=== PATIENT | female | born 1945 | race Hispanic/Latino ===

== ENCOUNTER 2018-07-08 10:56 | Inpatient (IN) | payer OTHER ==
[2018-07-08 12:55] LABS: Absolute Lymphocytes (CBC) 1.1 K/uL (0.7-4.9); Absolute Monocytes 0.5 K/uL (0.1-1.3); Absolute Neutrophil 7.2 K/uL (1.8-8.0); Basophils % 0.5 % (0-1.3); Eosinophils % 0.8 % (0-4.4); Monocytes % 5.9 % (3.3-12.3); RBC Red Blood Cell Count 4.63 M/uL (3.86-4.86)
[2018-07-08 12:56] LABS: Albumin 3.9 g/dL (3.4-5.0); Bilirubin Total 0.5 mg/dL (0.2-1.0); Potassium 3.5 mmol/L (3.5-5.1); Protein, Total 8.7 g/dL (6.4-8.2)
[2018-07-08] MEDS ORDERED: NA CHLORIDE 0.9% 250 ML ONE (13:01)
[2018-07-08] MEDS: Levofloxacin500mg IV 500 MG/100 ML BAG IV SCH (13:04)
[2018-07-08 16:28] LABS: Urine Appearance CLEAR; Urine Bilirubin NEGATIVE (NEG); Urine Blood 2+ (NEG); Urine Color YELLOW; Urine Glucose NEGATIVE (NEG); Urine Protein TRACE (NEG); Urine Specific Gravity 1.015 (1.005-1.030)
[2018-07-08] MEDS: ALBUTEROL 2.5 MG/3 ML NEB SOL NEB SCH ×2 (16:30→19:38)
[2018-07-08 16:34] LABS: Urine Microscopic Reflex ORDER UMIC
[2018-07-08 18:44] LABS: Urine Amorphous Sediment 2+ /HPF (NONE SEEN); Urine Bacteria 20-50 /HPF (<20); Urine Culture Reflex Order REFLEXED; Urine RBC 20-50 /HPF (NONE SEEN)
[2018-07-08] MEDS: ZOLPIDEM TARTRATE 5 MG TABLET PO PRN (20:43)
[2018-07-09] MEDS: ALBUTEROL 2.5 MG/3 ML NEB SOL NEB SCH ×4 (07:50→20:29)
[2018-07-09] MEDS: PREGABALIN 50 MG CAP PO SCH ×2 (08:59→20:14)
[2018-07-09] MEDS: Levofloxacin500mg IV 500 MG/100 ML BAG IV SCH (08:59)
[2018-07-09] MEDS: GUAIFENESIN/CODEINE 5ML UCUP PO PRN (17:16)
--- NOTE | 2018-07-09 19:49 | HP ---
Date of Admission: 07/08/2018 Chief Complaint: Wheezing, coughing, and fever. History Of Present Illness: A 73-year-old female was brought to my office with fever, wheezing and c oughing. Outpatient chest x-ray showed left basal pneumonia. The patient is admitted for IV antibio tic therapy and breathing treatments. Past Medical History: The patient is known to have history of smoking. Other problems include histo ry of osteoarthritis. Past Surgical History: Positive for back surgery, shoulder surgery, knee replacement, hysterectomy, breast surgery. Family History: Positive for hypertension, heart disease, and arthritis. Allergies: PENICILLIN. Home Medicines: The patient currently is on Mobic and Lyrica. Review of Systems: The patient denied any chest pain, hemoptysis. Physical Examination: General: Revealed 73-year-old female with low-grade fever. HEENT: Congested throat. Neck: Supple. JVD negative. Chest: Bilateral wheezes and crackles. Heart: Regular. Abdomen: Soft. Extremities: No edema. Diffuse osteoarthritis noted. Assessment: 1.Left basal pneumonia. 2.Chronic obstructive pulmonary disease. 3.Osteoarthritis. Plan: IV Levaquin, Proventil inhaler, restart home medications. MELISSA/NIKI Voice ID: [id number]
[2018-07-09] MEDS: MELOXICAM 7.5 MG TAB PO SCH (20:14)
[2018-07-09] MEDS: ZOLPIDEM TARTRATE 5 MG TABLET PO PRN (20:15)
[2018-07-10] MEDS: GUAIFENESIN/CODEINE 5ML UCUP PO PRN ×2 (05:24→23:00)
--- NOTE | 2018-07-10 07:04 | RAD REPORT ---
EXAM DESCRIPTION: RAD - Chest Single View - 07/10/2018 6:37 am CLINICAL HISTORY: Pneumonia COMPARISON: July 08 TECHNIQUE: AP portable chest image was obtained 0620 hours . FINDINGS: Chronic interstitial lung disease is noted. Left base opacification has mostly cleared. Tr elizabeth amount of stranding in the right base also improved. No new or progressive lung parenchymal proce ss. No failure or volume overload. Heart and vasculature are normal. No measurable pleural effusion a nd no pneumothorax. No acute bony abnormality seen. No acute aortic findings suspected. IMPRESSION: Partial clearing of left lung base opacification since prior July 08 imaging.
[2018-07-10] MEDS: ALBUTEROL 2.5 MG/3 ML NEB SOL NEB SCH ×4 (08:09→21:14)
[2018-07-10] MEDS: Levofloxacin500mg IV 500 MG/100 ML BAG IV SCH (08:19)
[2018-07-10] MEDS: PREGABALIN 50 MG CAP PO SCH ×2 (08:19→20:52)
[2018-07-10] MEDS ORDERED: ENOXAPARIN 30 MG/0.3 ML SQ ONE (08:53)
[2018-07-10] MEDS: predniSONE 20 MG TAB PO SCH ×2 (10:03→20:52)
[2018-07-10] MEDS: MELOXICAM 7.5 MG TAB PO SCH (20:52)
[2018-07-10] MEDS: ZOLPIDEM TARTRATE 5 MG TABLET PO PRN (20:52)
--- NOTE | 2018-07-11 01:57 | PN ---
The patient still has considerable wheezing. Her chest x-ray shows improvement of the pneumonia. In view of her continued wheezing, the patient is started on oral steroids. She also was given Tessalo n Perles. She will be reexamined tomorrow to see whether she would improve further; at which point, a discharge plan will be done. MELISSA/NIKI Voice ID: [id number] Report ID: [id number]
[2018-07-11] MEDS: ALBUTEROL 2.5 MG/3 ML NEB SOL NEB SCH ×4 (07:45→20:05)
[2018-07-11] MEDS: BENZONATATE 100 MG CAP PO PRN ×2 (08:28→16:27)
[2018-07-11] MEDS: Levofloxacin500mg IV 500 MG/100 ML BAG IV SCH (08:28)
[2018-07-11] MEDS: predniSONE 20 MG TAB PO SCH ×2 (08:28→21:17)
[2018-07-11] MEDS: PREGABALIN 50 MG CAP PO SCH ×2 (08:28→21:17)
--- NOTE | 2018-07-11 12:38 | PN ---
The patient is doing slightly better today. She still has bilateral wheezes and crackles in the left base. She is afebrile. Very likely patient is responding to oral steroids, which will be continued for another 24 hours along with breathing treatments and very likely I will send her home tomorrow o n oral antibiotic, steroids, and inhalers. MELISSA/NIKI Voice ID: [id number] Report ID: [id number]
[2018-07-11] MEDS: GUAIFENESIN/CODEINE 5ML UCUP PO PRN (21:16)
[2018-07-11] MEDS: MELOXICAM 7.5 MG TAB PO SCH (21:17)
[2018-07-11] MEDS: ZOLPIDEM TARTRATE 5 MG TABLET PO PRN (21:17)
[2018-07-12] MEDS: ALBUTEROL 2.5 MG/3 ML NEB SOL NEB SCH (07:16)
[2018-07-12] MEDS: BENZONATATE 100 MG CAP PO PRN (08:50)
[2018-07-12] MEDS: Levofloxacin500mg IV 500 MG/100 ML BAG IV SCH (08:50)
[2018-07-12] MEDS: PREGABALIN 50 MG CAP PO SCH (08:51)
[2018-07-12] MEDS: predniSONE 20 MG TAB PO SCH (08:51)
[2018-07-12] MEDS: GUAIFENESIN/CODEINE 5ML UCUP PO PRN (10:39)
== END 2018-07-12 11:22 | disposition home or self-care (01) | DRG 194 ==
LOC: 2ND 11:32
PROVIDERS: ADMIT Internal Medicine; ATTEND Internal Medicine
DX: J18.9 Pneumonia, unspecified organism (principal); J44.0 Chronic obstructive pulmonary disease with (acute) lower respiratory infection; Z87.891 Personal history of nicotine dependence; Z88.0 Allergy status to penicillin; M19.90 Unspecified osteoarthritis, unspecified site
CPT/HCPCS: 36415; 71045; 71046; 80053; 81003; 81015; 85025; 87040; 87070; 87077; 87086; 87088; 87186; 87205; 94640; J1650; J7512

== ENCOUNTER 2018-09-30 19:27 | Emergency (ER) | payer OTHER ==
--- NOTE | 2018-09-30 20:35 | RAD REPORT ---
EXAM DESCRIPTION: RAD - Chest Single View - 09/30/2018 8:00 pm CLINICAL HISTORY: Productive cough, recent pneumonia COMPARISON: June 2018 TECHNIQUE: AP portable chest image was obtained 1958 hours . FINDINGS: No focal mass, consolidation or acute failure finding. Minimal peribronchial thickening is seen. Patient has a mild baseline interstitial pattern. This is stable overall. Minimal left base op acification seen on the prior study has cleared. Heart and vasculature are normal. No measurable pleu ral effusion and no pneumothorax. No acute bony abnormality seen. No acute aortic findings suspected. IMPRESSION: Chronic interstitial lung disease. Previously detailed left base infiltrate has resolved . Severity chronic disease could mask early interstitial edema or infiltrate.
[2018-09-30 23:32] LABS: Absolute Lymphocytes (CBC) 2.1 K/uL (0.7-4.9); Absolute Monocytes 0.6 K/uL (0.1-1.3); Absolute Neutrophil 6.4 K/uL (1.8-8.0); Basophils % 0.4 % (0-1.3); Eosinophils % 11.7 % (0-4.4); Hematocrit 37.7 % (36.0-45.0); MPV 8.5 fL (7.6-11.3); Monocytes % 5.5 % (3.3-12.3); RBC Red Blood Cell Count 4.15 M/uL (3.86-4.86)
[2018-09-30 23:45] LABS: Protime INR 0.97
[2018-09-30] MEDS ORDERED: IPRATROPIUM BROM 0.5MG/2.5ML ONE (23:50)
[2018-09-30] MEDS ORDERED: ALBUTEROL 2.5 MG/3 ML NEB SOL ONE (23:50)
[2018-09-30] MEDS ORDERED: Levofloxacin500mg IV 500 MG/100 ML BAG IV ONE (23:51)
[2018-09-30] MEDS ORDERED: Magnesium Sulfate 2gm IVPB 2 G/50 ML BAG IV ONE (23:51)
[2018-09-30] MEDS ORDERED: DEXAMETHASONE 4 MG/ML VIAL ONE (23:56)
[2018-09-30 23:59] LABS: ALT/SGPT 15 U/L (12-78); AST/SGOT 15 U/L (15-37); Albumin 3.6 g/dL (3.4-5.0); Alkaline Phosphatase 74 U/L (45-117); BUN Blood Urea Nitrogen 6 mg/dL (7-18); Bicarbonate 26 mmol/L (21-32); Bilirubin Direct 0.1 mg/dL (0-0.2); Bilirubin Total 0.3 mg/dL (0.2-1.0); Glucose Level 112 mg/dL (74-106); NT PRO-BNP 68 pg/mL (<125); Potassium 3.7 mmol/L (3.5-5.1); Sodium Level 145 mmol/L (136-145); Troponin (Emerg Dept Use Only) < 0.02 ng/mL (0.0-0.045)
--- NOTE | 2018-10-01 01:54 | EDPHYS ---
Physician Documentation [facility] Name: Emeli Benoit Age: 73 yrs Sex: Female : 1945 Arrival Date: 09/30/2018 Time: 19:30 Bed 20 Private MD: Parvez Flores R ED Physician Narayan Clement HPI: 09/30 23:48 This 73 yrs old Female presents to ER via Ambulatory with complaints of Cough. wa 23:48 The patient or guardian reports cough, described as moderate, with productive sputum, wa that is yellow. Onset: The symptoms/episode began/occurred 3 day(s) ago. Severity of symptoms: At their worst the symptoms were moderate, in the emergency department the symptoms are actually worse, mildly. Modifying factors: The symptoms are alleviated by nothing, the symptoms are aggravated by nothing. Associated signs and symptoms: Pertinent positives: mild SOB, Pertinent negatives: chest pain, fever, nausea, rhinorrhea, sore throat, vomiting. The patient has experienced similar episodes in the past, several times, dx'd with pna last June. states had been improving slowly. cough worse x 3 days. The patient has not recently seen a physician. Historical: - Allergies: 19:39 PENICILLINS; ea - Home Meds: 19:39 Lyrica Oral [Active]; meloxicam oral oral [Active]; ea - PMHx: 19:39 Arthritis; ea - PSHx: 19:39 back surgery; knee repair; right breast lumpectomy; ea - Immunization history:: Adult Immunizations up to date. - Social history:: Smoking status: Patient/guardian denies using tobacco, but has a distant history of tobacco abuse. - Ebola Screening: : No symptoms or risks identified at this time. - Family history:: not pertinent. - Hospitalizations: : No recent hospitalization is reported. ROS: 23:49 Constitutional: Negative for fever, chills, and weight loss, Eyes: Negative for injury, wa pain, redness, and discharge, ENT: Negative for injury, pain, and discharge, Neck: Negative for injury, pain, and swelling, Abdomen/GI: Negative for abdominal pain, nausea, vomiting, diarrhea, and constipation, Back: Negative for injury and pain, : Negative for injury, bleeding, discharge, and swelling, MS/Extremity: Negative for injury and deformity, Skin: Negative for injury, rash, and discoloration, Neuro: Negative for headache, weakness, numbness, tingling, and seizure, Psych: Negative for depression, anxiety, suicide ideation, homicidal ideation, and hallucinations. 23:49 Cardiovascular: Negative for chest pain, edema, orthopnea, palpitations, paroxysmal nocturnal dyspnea. 23:49 Respiratory: Positive for cough, shortness of breath, Negative for dyspnea on exertion. 23:49 All other systems are negative. Exam: 23:50 Constitutional: This is a well developed, well nourished patient who is awake, alert, wa and in no acute distress. Head/Face: Normocephalic, atraumatic. Eyes: Pupils equal round and reactive to light, extra-ocular motions intact. Lids and lashes normal. Conjunctiva and sclera are non-icteric and not injected. Cornea within normal limits. Periorbital areas with no swelling, redness, or edema. ENT: Nares patent. No nasal discharge, no septal abnormalities noted. Tympanic membranes are normal and external auditory canals are clear. Oropharynx with no redness, swelling, or masses, exudates, or evidence of obstruction, uvula midline. Mucous membranes moist. Neck: Trachea midline, no thyromegaly or masses palpated, and no cervical lymphadenopathy. Supple, full range of motion without nuchal rigidity, or vertebral point tenderness. No Meningismus. Chest/axilla: Normal chest wall appearance and motion. Nontender with no deformity. No lesions are appreciated. Cardiovascular: Regular rate and rhythm with a normal S1 and S2. No gallops, murmurs, or rubs. Normal PMI, no JVD. No pulse deficits. Abdomen/GI: Soft, non-tender, with normal bowel sounds. No distension or tympany. No guarding or rebound. No evidence of tenderness throughout. Back: No spinal tenderness. No costovertebral tenderness. Full range of motion. Skin: Warm, dry with normal turgor. Normal color with no rashes, no lesions, and no evidence of cellulitis. MS/ Extremity: Pulses equal, no cyanosis. Neurovascular intact. Full, normal range of motion. Neuro: Awake and alert, GCS 15, oriented to person, place, time, and situation. Cranial nerves II-XII grossly intact. Motor strength 5/5 in all extremities. Sensory grossly intact. Cerebellar exam normal. Normal gait. Psych: Awake, alert, with orientation to person, place and time. Behavior, mood, and affect are within normal limits. 23:50 Respiratory: the patient does not display signs of respiratory distress, Respirations: normal, Breath sounds: decreased breath sounds, that are mild, are scattered, wheezing: that is severe, is heard diffusely. Vital Signs: 19:40 BP 141 / 84; Pulse 132; Resp 20; Temp 98.9; Pulse Ox 94% on R/A; Weight 62.6 kg; Height ea 5 ft. 2 in. (157.48 cm); 22:08 BP 145 / 86; Pulse 104; Resp 18; Temp 98.1; Pulse Ox 99% on R/A; ed1 23:36 BP 143 / 80; Pulse 101; Resp 20; Pulse Ox 97% on R/A; Pain 0/10; ed1 10/01 00:15 BP 139 / 79; Pulse 98; Resp 18; Pulse Ox 100% on R/A; Pain 0/10; ed1 02:03 BP 142 / 85; Pulse 93; Resp 19; Temp 97.9(O); Pulse Ox 99% on R/A; Pain 0/10; ed1 09/30 19:40 Body Mass Index 25.24 (62.60 kg, 157.48 cm) ea MDM: 09/30 22:05 Patient medically screened. vt 23:51 Differential Diagnosis: Bronchitis Influenza Upper Respiratory Infection Viral Syndrome wa Pneumonia Other CHF exacerbation. Data reviewed: vital signs, nurses notes. 23:52 Test interpretation: by ED physician or midlevel provider: negative flu. normal labs. vt CXR: no acute process. . 23:53 ED course: will treat as bronchitis/COPD exacerbation and reassess. vt 10/01 01:51 Response to treatment: the patient's symptoms have markedly improved after treatment. vt ED course: moving air well. stated felt much better at time of d/c. 09/30 19:40 Order name: Flu; Complete Time: 22:23 09/30 19:40 Order name: Strep; Complete Time: 22:23 09/30 20:15 Order name: Throat Culture EDLA 09/30 22:24 Order name: BMP; Complete Time: 01:09 vt 09/30 22:24 Order name: CBC with Diff; Complete Time: 23:52 vt 09/30 22:24 Order name: Hepatic Function; Complete Time: : vt 09/30 19:40 Order name: CXR XRAY; Complete Time: 22:23 09/30 22:24 Order name: NT PRO-BNP; Complete Time: : vt 09/30 22:24 Order name: PT-INR; Complete Time: 23:52 vt 09/30 22:24 Order name: Troponin (emerg Dept Use Only); Complete Time: : vt 09/30 22:24 Order name: EKG; Complete Time: 22:25 vt 09/30 22:24 Order name: Cardiac monitoring; Complete Time: 23:16 vt 09/30 22:24 Order name: EKG - Nurse/Tech; Complete Time: 23:16 vt 09/30 22:24 Order name: IV Saline Lock; Complete Time: 23:16 vt 09/30 22:24 Order name: Labs collected and sent; Complete Time: 23:16 vt 09/30 22:24 Order name: O2 Per Protocol; Complete Time: 23:36 vt 09/30 22:24 Order name: O2 Sat Monitoring; Complete Time: 23:36 vt Administered Medications: 09/30 23:43 Drug: Albuterol - atroVENT (3:1) (2.5 mg - 0.5 mg) 3 ml Route: Nebulizer; ed1 10/01 00:47 Follow up: Response: No adverse reaction; Marked relief of symptoms ed09/30 23:54 Drug: Decadron - Dexamethasone 10 mg Route: IVP; Site: right forearm; 10/01 00:48 Follow up: Response: No adverse reaction ed1 09/30 23:55 Drug: Magnesium Sulfate 2 grams Route: IVPB; Infused Over: 2 hrs; Site: right forearm; 10/01 00:47 Follow up: Response: No adverse reaction; IV Status: Completed infusion; IV Intake: [id number] 00:50 Drug: LevaQUIN 500 mg Volume: 100 ml; Route: IVPB; Infused Over: 60 mins; Site: right ed1 forearm; Disposition: 10/01/18 01:53 Discharged to Home. Impression: Acute on Chronic bronchitis. - Condition is Stable. - Discharge Instructions: Chronic Bronchitis. - Prescriptions for Albuterol Sulfate 2.5 mg /3 mL (0.083 %) Inhalation Solution for Nebulization - inhale 1 unit by NEBULIZATION route every 8 hours As needed; 1 box. Zithromax Z- [place]asper 250 mg Oral Tablet - take 1 tablet by ORAL route as directed for 5 days Day 1 - take two (2) tablets one time. Day 2, 3, 4 , 5 take one (1) tablet once daily.; 6 tablet. Prednisone 20 mg Oral Tablet - take 2 tablet by ORAL route once daily for 5 days; 10 tablet. - Medication Reconciliation Form, Thank You Letter, Antibiotic Education, Prescription Opioid Use form. - Follow up: Parvez Flores MD; When: 2 - 3 days; Reason: Recheck today's complaints. - Problem is chronic. - Symptoms have improved. - Notes: quit smoking. take medication as prescribed. see your doctor in 2-3 days for further evaluation Signatures: Dispatcher [employer] EDMS Kathie Oden RN RN Irena Dietz RN RN ed1 Tameka Teague RN RN UrbanoNarayan MD MD wa Corrections: (The following items were deleted from the chart) 02:04 01:53 10/01/2018 01:53 Discharged to Home. Impression: Acute on Chronic bronchitis. ed1 Condition is Stable. Forms are Medication Reconciliation Form, Thank You Letter, Antibiotic Education, Prescription Opioid Use. Follow up: Parvez Flores; When: 2 - 3 days; Reason: Recheck today's complaints. Problem is chronic. Symptoms have improved. wa
--- NOTE | 2018-10-01 01:54 | ER ---
Nurse's Notes [facility] Name: Emeli Benoit Age: 73 yrs Sex: Female : 1945 Arrival Date: 09/30/2018 Time: 19:30 Bed 20 Private MD: Parvez Flores R Diagnosis: Acute on Chronic bronchitis Presentation: 09/30 19:34 Presenting complaint: Patient states: Couple of months ago pt reports she had ea pneumonia. Pt reports a productive cough that started Sunday. Pt reports she may have been running fever. Transition of care: patient was not received from another setting of care. Onset of symptoms was September 30, 2018. Risk Assessment: Do you want to hurt yourself or someone else? Patient reports no desire to harm self or others. Initial Sepsis Screen: Does the patient meet any 2 criteria? HR > 90 bpm. Does the patient have a suspected source of infection? Yes: Productive cough/pneumonia. Care prior to arrival: None. 19:34 Method Of Arrival: Ambulatory ea 19:34 Acuity: ANDRE 3 ea Triage Assessment: 19:41 General: Appears uncomfortable, Behavior is appropriate for age. Pain: Complains of ea pain in body aches. Neuro: Level of Consciousness is awake, alert, obeys commands, Oriented to person, place, time, situation. Respiratory: Airway is patent Respiratory effort is even, unlabored, Respiratory pattern is regular, symmetrical, Parent/caregiver reports the patient having cough that is productive, hacking, persistent. Historical: - Allergies: 19:39 PENICILLINS; ea - Home Meds: 19:39 Lyrica Oral [Active]; meloxicam oral oral [Active]; ea - PMHx: 19:39 Arthritis; ea - PSHx: 19:39 back surgery; knee repair; right breast lumpectomy; ea - Immunization history:: Adult Immunizations up to date. - Social history:: Smoking status: Patient/guardian denies using tobacco, but has a distant history of tobacco abuse. - Ebola Screening: : No symptoms or risks identified at this time. - Family history:: not pertinent. - Hospitalizations: : No recent hospitalization is reported. Screenin:56 Abuse screen: Denies threats or abuse. Denies injuries from another. Nutritional ed1 screening: No deficits noted. Tuberculosis screening: No symptoms or risk factors identified. Fall Risk None identified. Assessment: 21:56 General: Appears uncomfortable, Behavior is calm, cooperative. Pain: Denies pain. ed1 Neuro: Level of Consciousness is awake, alert, obeys commands, Oriented to person, place, time, situation. Cardiovascular: Denies chest pain, Heart tones S1 S2 present. Respiratory: Reports shortness of breath cough that is non-productive, Airway is patent Respiratory effort is even, unlabored, Respiratory pattern is regular, symmetrical, Breath sounds are coarse bilaterally. GI: No signs and/or symptoms were reported involving the gastrointestinal system. : No signs and/or symptoms were reported regarding the genitourinary system. EENT: No signs and/or symptoms were reported regarding the EENT system. Derm: Skin is intact, is healthy with good turgor, Skin is dry, Skin is normal, Skin temperature is warm. Musculoskeletal: Circulation, motion, and sensation intact. Range of motion: intact in all extremities. 23:36 Reassessment: No changes from previously documented assessment. Patient and/or family ed1 updated on plan of care and expected duration. Pain level reassessed. Patient is alert, oriented x 3, equal unlabored respirations, skin warm/dry/pink. Patient states symptoms have not improved. 10/01 00:15 Reassessment: Patient appears in no apparent distress at this time. Patient and/or ed1 family updated on plan of care and expected duration. Pain level reassessed. Patient is alert, oriented x 3, equal unlabored respirations, skin warm/dry/pink. Patient denies pain at this time. Patient states feeling better. Patient states symptoms have improved. Respiratory: Airway is patent Respiratory effort is even, unlabored, Respiratory pattern is regular, symmetrical, Breath sounds are clear bilaterally. 02:03 Reassessment: Patient appears in no apparent distress at this time. Patient and/or ed1 family updated on plan of care and expected duration. Pain level reassessed. Patient is alert, oriented x 3, equal unlabored respirations, skin warm/dry/pink. Patient denies pain at this time. Patient states feeling better. Patient states symptoms have improved. Vital Signs: 09/30 19:40 BP 141 / 84; Pulse 132; Resp 20; Temp 98.9; Pulse Ox 94% on R/A; Weight 62.6 kg; Height ea 5 ft. 2 in. (157.48 cm); 22:08 BP 145 / 86; Pulse 104; Resp 18; Temp 98.1; Pulse Ox 99% on R/A; ed1 23:36 BP 143 / 80; Pulse 101; Resp 20; Pulse Ox 97% on R/A; Pain 0/10; ed1 03/12 00:15 BP 139 / 79; Pulse 98; Resp 18; Pulse Ox 100% on R/A; Pain 0/10; ed1 02:03 BP 142 / 85; Pulse 93; Resp 19; Temp 97.9(O); Pulse Ox 99% on R/A; Pain 0/10; ed1 11 19:40 Body Mass Index 25.24 (62.60 kg, 157.48 cm) ea ED Course: 09/30 19:30 Patient arrived in ED. am2 19:30 Parvez Flores MD is Private Physician. am2 19:37 Triage completed. ea 19:59 CXR XRAY In Process Unspecified. EDMS 21:56 Patient has correct armband on for positive identification. Placed in gown. Bed in low ed1 position. Call light in reach. Side rails up X2. Adult w/ patient. 21:56 Arm band placed on left wrist. ed1 22:03 Irena Dietz, АНДРЕЙ is Primary Nurse. ed1 22:05 Narayan Clement MD is Attending Physician. wa 23:36 Initial lab(s) drawn, by in, sent to lab. Inserted saline lock: 22 gauge in right ed1 forearm, using aseptic technique. Blood collected. 10/01 01:53 Parvez Flores MD is Referral Physician. wa 02:03 No provider procedures requiring assistance completed. IV discontinued, intact, ed1 bleeding controlled, No redness/swelling at site. Pressure dressing applied. Administered Medications: 09/30 23:43 Drug: Albuterol - atroVENT (3:1) (2.5 mg - 0.5 mg) 3 ml Route: Nebulizer; ed1 10/01 00:47 Follow up: Response: No adverse reaction; Marked relief of symptoms ed1 09/30 23:54 Drug: Decadron - Dexamethasone 10 mg Route: IVP; Site: right forearm; bb 10/01 00:48 Follow up: Response: No adverse reaction ed1 09/30 23:55 Drug: Magnesium Sulfate 2 grams Route: IVPB; Infused Over: 2 hrs; Site: right forearm; bb 10/01 00:47 Follow up: Response: No adverse reaction; IV Status: Completed infusion; IV Intake: [id number] 00:50 Drug: LevaQUIN 500 mg Volume: 100 ml; Route: IVPB; Infused Over: 60 mins; Site: right ed1 forearm; Intake: 00:47 IV: 50ml; Total: 50ml. ed1 Outcome: 01:53 Discharge ordered by MD. denise 02:03 Discharged to home ambulatory, with significant other. ed1 02:03 Condition: good 02:03 Discharge instructions given to patient, Instructed on discharge instructions, follow up and referral plans. medication usage, Demonstrated understanding of instructions, follow-up care, medications, Prescriptions given X 3. 02:04 Patient left the ED. ed1 Signatures: Dispatcher [employer] Kathie Prince RN RN bb Riggs, Erika, RN RN ed1 Yola Roberson am2 Tameka Teague RN RN ea Appiah, William, MD MD wa
--- NOTE | 2018-10-03 10:28 | EKG ---
Test Date: 2018-09-30 Test Time: 23:21:13 Etl Programmer: LAURA MEASUREMENT RESULTS: Intervals: Rate: 73 AR: 140 QRSD: 74 QT: 364 QTc: 401 [place]: P: 62 AR: 140 QRS: 59 T: 64 INTERPRETIVE STATEMENTS: Normal sinus rhythm Normal ECG No previous ECG available for comparison Electronically Signed On 10-01-18 12:40:25 CDT by Aries O[place]iedo
== END 2018-10-01 02:04 | disposition home or self-care (01) ==
LOC: ER 19:27
DX: J20.9 Acute bronchitis, unspecified (principal); Z88.0 Allergy status to penicillin; Z87.891 Personal history of nicotine dependence
CPT/HCPCS: 96365; 93005; 87070; 85025; 80048; 36415; 85610; 80076; 87081; 84484; 83880; 87804 ×2; 71045; 94640; 96375; 99284; J3475

== ENCOUNTER 2023-03-13 05:29 | Observation (INO) | payer OTHER ==
[2023-03-09 10:14] LABS: Absolute Lymphocytes (CBC) 3.7 K/uL (0.7-4.9); Hematocrit 38.9 % (36.0-45.0); Lymphocytes % 34.5 % (15.3-44.8); MCV 93.4 fL (80-100); Platelets 303 thou/uL (152-406); RBC Red Blood Cell Count 4.16 M/uL (3.86-4.86)
[2023-03-09 10:20] LABS: Protime INR 0.85
[2023-03-09 10:22] LABS: Specific Gravity 1.011 (1.005-1.030); Urine Bilirubin NEGATIVE (Negative); Urine Blood Negative (Negative); Urine Clarity Clear (Clear); Urine Color Light-Yellow (Yellow); Urine Glucose NEGATIVE (Negative); Urine Protein NEGATIVE (Negative); Urine Urobilinogen Normal (Normal)
[2023-03-09 10:31] LABS: Albumin 3.3 g/dL (3.4-5.0); Bilirubin Total 0.3 mg/dL (0.2-1.0); Protein, Total 6.7 g/dL (6.4-8.2)
[2023-03-13] MEDS ORDERED: CEFAZOLIN SODIUM 2 GM/VIAL ONE (05:54)
[2023-03-13] MEDS ORDERED: CELECOXIB 100 MG CAPSULE ONE (05:54)
[2023-03-13] MEDS ORDERED: GABAPENTIN 100 MG CAP ONE (05:55)
[2023-03-13] MEDS ORDERED: Ringers Lactate 1,000 ML IV ONE (05:56)
[2023-03-13] MEDS ORDERED: ACETAMINOPHEN 500 MG TAB ONE (05:56)
[2023-03-13] MEDS ORDERED: Oxycodone HCl/Acetaminophen 1 TAB TAB ONE (05:56)
[2023-03-13] MEDS ORDERED: FENTANYL CITR 100 MCG/2 ML ONE (06:22)
[2023-03-13] MEDS ORDERED: LIDOCAINE 1% MPF 5 ML VIAL ONE (06:22)
[2023-03-13] MEDS ORDERED: dexAMETHasone 10 MG/ML VIAL ONE (06:22)
[2023-03-13] MEDS ORDERED: DEXMEDETOMIDINE HCL 200 MCG/2 ML VIAL ONE (06:23)
[2023-03-13] MEDS ORDERED: BUPIVACAINE 0.25% PF 30 ML VIAL ONE (06:23)
[2023-03-13] MEDS ORDERED: EPINEPHRINE/PF 1 MG/ML AMP ONE (06:23)
[2023-03-13] MEDS ORDERED: MIDAZOLAM HCL 2 MG/2 ML INJ ONE (06:23)
[2023-03-13] MEDS: TRANEXAMIC ACID 1,000 MG/10 ML VIAL IV ONE ×3 (07:00→09:00)
[2023-03-13] MEDS ORDERED: CLINDAMYCIN 900MG/D5W 900 MG/50 ML IVPB IV ONE (07:15)
[2023-03-13] MEDS ORDERED: MAGNESIUM SULFATE 1 gm IVPB 1 GM/100 ML BAG IV ONE (07:15)
[2023-03-13] MEDS ORDERED: NA CHLORIDE 0.9% 250 ML ONE (07:17)
[2023-03-13] MEDS ORDERED: LIDOCAINE 2% MPF 5 ML VIAL ONE ×2 (07:25→07:37)
[2023-03-13] MEDS ORDERED: propofoL 200 MG/20 ML VIAL IV ONE (07:25)
[2023-03-13] MEDS ORDERED: KETAMINE HCL IN 0.9 % NACL 50 MG/5 ML SYRINGE IV ONE (07:37)
[2023-03-13] MEDS ORDERED: DOCUSATE NA 100 MG CAP PO PRN (09:34)
--- NOTE | 2023-03-13 09:34 | P.BOP ---
Preoperative diagnosis: right knee arthritis Postoperative diagnosis: same Primary procedure: right TKA Estimated blood loss: 100 ccs Anesthesia: General Complications: None Transferred to: Recovery Room Condition: Good
[2023-03-13] MEDS: HYDROMORPHONE HCL 1 MG/ML INJ ONE ×3 (10:10→10:15)
--- OUTSIDE RECORDS SUMMARY | 2023-03-13 11:45 | XMS REPORT | Continuity of Care Document ---
:1945 Author Organization [facility] t Address [address] [place] [address]. [address] [place] [address] Care Team Providers Name Role Phone Parvez Poole MD Primary Care Physician Parvez Poole Attending Clinician Unavailable Vaccine, Ang Db Cbc Fam Attending Clinician Unavailable Barbie Tellez MD Attending Clinician BARBIE TELLEZ Attending Clinician Unavailable Payers Payer Name Policy Type Policy Number Effective Date Expiration Date S ource Problems Condition Condition Condition Status Onset Resolution Last Treating Co mments Source Name Details Category Date Date Treatment Clinician Date Post-op Post-op Disease Active Univers pain pain 706 ity of 00:00: [address] Allergies, Adverse Reactions, Alerts Allergy Allergy Status Severity Reaction(s) Onset Inactive Treating Comm ents Source Name Type Date Date Clinician PENICILL Drug Active Med Hives Univers INS Class 7-05 ity of 00:00: [place] 00 [facility] Penicill Propensi Active Rash Univer s ins ty to 7-05 ity of adverse 00:00: [place] reaction Medical s to Branch drug Social History Social Habit Start Date Stop Date Quantity Comments Source Exposure to Not sure [facility] SARS-CoV-2 [facility] (event) Branch History of Cigarette Smoker Universi ty of tobacco use [facility] Alcohol intake 2016-01-28 2016-01-28 0 /d University of 00:00:00 00:00:00 [facility] Tobacco Comment 2016-01-26 2016-01-26 Patient stated Unive rsity of 00:00:00 00:00:00 she quit 2 days [place] [facility] ica ago prior to Branch surgery Tobacco use and 2016-01-25 2016-01-25 Never used Universit y of exposure 00:00:00 00:00:00 [facility] Sex [birth year] At [birth year] Universit y of 00:00:00 00:00:00 [facility] Smoking Status Start Date Stop Date Source Current some day smoker 2016-01-25 00:00:00 Univ ersity of [facility] Medications Ordered Filled Start Stop Current Ordering Indication Dosage Frequency Signature Comments Components Source Medication Medication Date Date Medication? Clinician (SIG) Name Name acetaminoph Yes 1{tbl} Take 1 Un genia en-codeine 01-26 tablet by cody of (TYLENOL 00:00: mouth [place] #3) 300-30 00 every 4 Medica l mg tablet (four) Branch hours as needed for Pain unrelieved by non-narcot ic analgesics . Immunizations Ordered Filled Immunization Date Status Comments Sour e Immunization Name Name SARS-COV-2 COVID-19 2021-10-21 Completed Unive rsity of MODERNA BOOSTER 00:00:00 [facility] VACCINE Branch SARS-COV-2 COVID-19 2021-04-11 Completed Unive rsity of MODERNA VACCINE 00:00:00 [facility] SARS-COV-2 COVID-19 2020-09-21 Completed Unive rsity of MODERNA VACCINE 00:00:00 [facility] SARS-COV-2 COVID-19 2020-08-24 Completed Unive rsity of MODERNA VACCINE 00:00:00 [facility] Procedures Procedure Date / Time Performed Performing Clinician Sour e SARS-COV-2 COVID-19 2021-10-21 14:59:21 Doctor Unassigned, No Un iversity of [place] VACCINE Name [facility] BOOSTER,0.25ML,IM (MODERNA) Encounters Start End Encounter Admission Attending Care Care Encounter Source Date/Time Date/Time Type Type Clinicians Facility Department ID 2022-12-21 Outpatient Kattegummul [facility] [id number] Common 10:27:01 a, Parvez 51999 [facility] 2021-10-28 [facility] [id number] Common 07:58:01 a, Parvez [facility] 2021-10-12 Outpatient [facility]ummul [facility] [id number] Common 08:44:04 a, Parvze [facility] 2021-09-26 Outpatient [facility]gummul [facility] [id number] Common 08:12:02 a, Parvez [facility] 2021-10-21 2021-10-21 Imm/Inj Vaccine, Ang Db Cbc Fam [facility] 1. [id number] Univers 10:00:00 10:10:00 Visit Barbie Tellez [facility] [id number] cody dumont [place] [id number] Avinash as SVETLANA?BLEA [phone] Wi ronald [place] [address] [place] [address] MEDICAL OFFICE BUILDING 2021-10-21 2021-10-21 Outpatient Monalisa TELLEZ [facility] [id number] Univers 10:00:00 10:00:00 BARBIE ross [facility] Results This patient has no known results.
[2023-03-13 11:57] VITALS: BMI 26.8
[2023-03-13] MEDS: HYDROCODONE/APAP 7.5/325 MG TAB PO PRN ×2 (15:32→21:41)
[2023-03-13] MEDS: CLINDAMYCIN 900MG/D5W 900 MG/50 ML IVPB IV SCH (16:27)
--- NOTE | 2023-03-13 16:45 | OP ---
Date of Procedure: 03/13/2023 Surgeon: Ron Davila MD Preoperative Diagnosis: Right knee severe arthritis. Postoperative Diagnosis: Right knee severe arthritis. Procedure: Right total knee arthroplasty using Biomet Vanguard system. Estimated Blood Loss: 100 cc. Complications: There were no complications. Indications For Operation: Ms. Benoit is a patient whom I have seen for quite some time. She h as had a previous total knee done many years ago, but unfortunately has developed severe pain and salena ilitating problems with the right knee. X-rays demonstrate severe arthritic changes and she has not received significant benefit from further conservative care and risks, benefits, and alternatives of total knee arthroplasty were discussed with her. She states she understands things as presented and wishes to proceed. She does have a block in the holding area. Description Of Procedure: The patient was taken to the operating room, placed in supine position. G eneral anesthesia was easily obtained by staff. Following this, a well-padded tourniquet was placed on superior right thigh. Right lower extremity was then prepped and draped in the usual sterile fash ion for the procedure. Following this, the leg was then elevated, gently exsanguinated with an Agustín w rap and knee was bent. Tourniquet was raised. A standard anterior incision was taken down carefully through skin and soft tissues. Meticulous hemostasis being maintained using Bovie electrocautery. This leads down to the appropriate plane, which was then reflected allowing for good visualization of the extensor mechanism. A standard medial parapatellar arthrotomy was then performed with liberatio n approximately 60 cc of rather normal-appearing synovial fluid. This was followed by some debrideme nt of the fat pad as well as debridement of the medial and lateral menisci as well as the ACL. The p atella being everted, allows for access with the intramedullary alignment guide which was placed with out difficulty. Following this, a distal femoral cut was then made. The sizing block was then place d and comes to a size 67.5. We do have her old sizes, which would be 65; however, after the 67 was c ut, felt that 65 would be too small and remainder of the cuts were then made. Attention was then tur simón to the tibia and tibia was cut in standard fashion. Trials were then placed with a size 71 tibia . This appeared to be tight in both flexion and extension. Therefore, additional 4 mm of tibia was resected. This now allowed for good flexion and extension, appears to be stable. Attention was then turned to patella and it was then calipered and cut. Patella button was placed and found to glide w ell. After this, the box was cut, tibia was punched and was prepped for cementation and the final co mponents with the exception of the tibial polyethylene are then placed and allowed to harden. Using careful removal of cement, any unsupported cement was removed. The knee was then brought through ran ge of motion, appears to glide quite well, appears to be stable again, goes to full extension and ángel ears to be well aligned. The wound was again irrigated and the polyethylene is then exchanged for th e final pin poly locked in place using locking bar. It was again irrigated and the extensor mechanis m was then repaired with Ethibond sutures followed by irrigation and closure of the skin with Vicryl followed by adria. The patient was then placed in a well-padded sterile dressing, awakened, and ta eve to recovery room in good condition. There were no complications. SE/MODL Voice ID: [id number] Report ID: [id number]
[2023-03-13 23:22] VITALS: O2SAT 95
[2023-03-14] MEDS: CLINDAMYCIN 900MG/D5W 900 MG/50 ML IVPB IV SCH ×2 (00:56→08:28)
[2023-03-14 03:37] LABS: Hematocrit 33.6 % (36.0-45.0)
[2023-03-14] MEDS ORDERED: ENOXAPARIN 30 MG/0.3 ML SQ SCH (06:00)
[2023-03-14] MEDS: HYDROCODONE/APAP 7.5/325 MG TAB PO PRN ×2 (08:27→12:13)
[2023-03-14 09:28] VITALS: BP 151/67; TEMP 97.3
--- NOTE | 2023-03-14 12:27 | P.CNS ---
Date of Consult: 03/14/23 Reason for Consult: Assistance with medical management Requesting Physician: Ron Davila Chief Complaint: Right total knee arthroplasty History of Present Illness: Patient is a 78-year-old female who came into the hospital with a right total knee arthroplasty. Patient has a history of COPD and neuropathy and patient has had multiple joint surgery. Patient did well postoperatively. Patient pain has improved from last night. Patient is clinically doing well. Patient's plan on going home with pain medication and anticoagulation. Patient denies any other complaints. We will get set up with outpatient physical therapy. Allergies cefaclor [From Ceclor] Allergy (Intermediate, Verified 03/09/23 08:51) Itching/Hives/Rash Penicillins Allergy (Intermediate, Verified 03/09/23 08:51) Itching/Hives/Rash Home Medications: Meloxicam [Mobic*] 7.5 mg PO BEDTIME 01/27/15 Pregabalin [Lyrica*] 50 mg PO BID 01/27/15 Alendronate Sodium 70 mg PO EVERY 7TH DAY 03/09/23 Cholecalciferol (Vitamin D3) [Vitamin D3] 10,000 unit PO DAILY 03/09/23 Cranberry Conc/C/Bacill Coag [Cranberry Tablet] 1 each PO DAILY 03/09/23 Fluticasone/Salmeterol [Advair 250-50 Diskus] 1 puff IH BID 03/09/23 - Past Medical/Surgical History Diabetic: No -: sciatica, nerve pain -: osteoporosis -: COPD -: Back Surgery (3) -: Shoulder Surgery (2) -: Knee Replacement Left -: Lumpectomy Right Breast -: Hysterectomy -: Appendectomy -: Carpal Tunnel Left - Family History Mother Medical History: Heart disease, Hypertension, Diabetes, Other (see notes) Notes: osteoarthritis Father Medical History: Heart disease, Other (see notes) Notes: Rheumatoid arthritis - Social History Smoking Status: Former smoker Alcohol use: No CD- Drugs: No Caffeine use: No Place of Residence: Home Review of Systems 10-point ROS is otherwise unremarkable Physical Examination Temp Pulse Resp BP Pulse Ox 97.3 F 69 16 151/67 H 98 03/14/23 08:00 03/14/23 08:00 03/14/23 08:00 03/14/23 08:00 03/14/23 08:00 General: Alert, In no apparent distress, Oriented x3 HEENT: Atraumatic, PERRLA, Mucous membr. moist/pink, EOMI, Sclerae nonicteric Neck: Supple, 2+ carotid pulse no bruit, No LAD, Without JVD or thyroid abnormality Respiratory: Clear to auscultation bilaterally, Normal air movement Cardiovascular: Regular rate/rhythm, Normal S1 S2 Gastrointestinal: Normal bowel sounds, Soft and benign, Non-distended, No tenderness Musculoskeletal: Tenderness (On range of motion exercises of the right leg) Integumentary: No rashes Neurological: Sensation intact, Cranial nerves 3-12 intact Lymphatics: No axilla or inguinal lymphadenopathy Laboratory Data (last 24 hrs) 03/14/23 02:32 Hgb 11.3 L Hct 33.6 L - Problems (1) S/P total knee arthroplasty Current Visit: Yes Status: Acute (2) History of COPD Current Visit: Yes Status: Acute (3) History of neuropathy Current Visit: Yes Status: Acute Conclusions/ Impression: Plan: 1. Continue with pain control 2. Outpatient physical therapy 3. Anticoagulation for DVT prophylaxis 4. Resume home medications 5. Outpatient orthopedic follow-up Critical Care: No Time Spent Managing Pts care (In Minutes): 45
== END 2023-03-14 13:40 | disposition home or self-care (01) ==
LOC: OR 05:29 → 2ND 09:34
PROVIDERS: ADMIT Orthopaedic Surgery; ATTEND Orthopaedic Surgery
PROC: 0SRC069 Replacement of Right Knee Joint with Oxidized Zirconium on Polyethylene Synthetic Substitute, Cemented, Open Approach (ICD-10-PCS; principal; 2023-03-13 07:00)
DX: M17.11 Unilateral primary osteoarthritis, right knee (principal)
CPT/HCPCS: 85025; 36415 ×2; 85610; 88305; 88311; 85730; 85018; 85014; 81003; 80053; 97110 ×4; 97116 ×2; 97139; 97161; 97530 ×2; 94010; 27447; J3475; J2704; J0171; J2001 ×3; J1650; J2250; J3010; J1100; J1170; J7120; J7050; 88304; G0378; G0379

== ENCOUNTER 2023-06-23 09:11 | Emergency (ER) | payer OTHER ==
--- OUTSIDE RECORDS SUMMARY | 2023-06-23 09:14 | XMS REPORT | Continuity of Care Document ---
:1945 Author Organization [facility] [place] [facility] t Address [address] [place] [address]. [address] [place] [address] Care Team Providers Name Role Phone Parvez Poole MD R Primary Care Physician Parvez Poole Attending Clinician Unavailable GC_[id number]_S Attending Clinician Unavailable Vaccine, Ang Db Cbc Fam Attending Clinician Unavailable Barbie Tellez MD Attending Clinician BARBIE TELLEZ Attending Clinician Unavailable TANVIR_MARIO_Marii_S Admitting Clinician Unavailable Payers Payer Name Policy Type Policy Number Effective Date Expiration Date S ource Problems Condition Condition Condition Status Onset Resolution Last Treating Co mments Source Name Details Category Date Date Treatment Clinician Date Post-op Post-op Disease Active Univers pain pain 01-25 ity of 00:00: [place] 00 [facility] Allergies, Adverse Reactions, Alerts Allergy Allergy Status Severity Reaction(s) Onset Inactive Treating Comm ents Source Name Type Date Date Clinician Penicill Propensi Active Rash Univer s ins ty to 01-24 ity of adverse 00:00: [place] reaction 00 Medical s to Branch drug PENICILL Drug Active Med Hives Univers INS Class 01-24 ity of 00:00: [place] 00 [facility] Social History Social Habit Start Date Stop Date Quantity Comments Source Exposure to Not sure University of SARS-CoV-2 [place] [facility] (event) Branch History of Cigarette Smoker Universi ty of tobacco use [facility] Alcohol intake 2016-01-28 2016-01-28 0 /d University of 00:00:00 00:00:00 [facility] Tobacco Comment 2016-01-26 2016-01-26 Patient stated Unive rsity of 00:00:00 00:00:00 she quit 2 days [place] Med ical ago prior to Branch surgery Tobacco use and 2016-01-25 2016-01-25 Never used Universit y of exposure 00:00:00 00:00:00 [facility] Sex Assigned At [birth year] Universit y of 00:00:00 00:00:00 [facility] Smoking Status Start Date Stop Date Source Current some day smoker 2016-01-25 00:00:00 Univ ersity of [facility] Medications Ordered Filled Start Stop Current Ordering Indication Dosage Frequency Signature Comments Components Source Medication Medication Date Date Medication? Clinician (SIG) Name Name acetaminoph Yes 1{tbl} Take 1 Un genia en-codeine 7-07 tablet by cody of (TYLENOL 00:00: mouth [place] #3) 300-30 00 every 4 Medica l mg tablet (four) Branch hours as needed for Pain unrelieved by non-narcot ic analgesics . Procedures Procedure Date / Time Performed Performing Clinician [facility] e SARS-COV-2 COVID-19 2021-10-21 14:59:21 Doctor Unassigned, No Un iversity of [place] VACCINE Name [facility] Branch BOOSTER,0.25ML,IM (MODERNA) Encounters Start End Encounter Admission Attending Care Care Encounter Source Date/Time Date/Time Type Type Clinicians Facility Department ID 2022-12-21 Outpatient Kattegummul [facility]C [facility] [id number] Common 10:27:01 aParvez 24473 [facility] 2021-10-28 Outpatient Kattegummul [facility] [id number] Common 07:58:01 aParvez [facility] 2021-10-12 Outpatient Kattegummul [facility] [id number] Common 08:44:04 aParvez [facility] 2021-09-26 Outpatient Kattegummul [facility] [id number] Common 08:12:02 aEmilya 06817 [facility] 2023-05-23 2023-05-23 Outpatient GC_[id number] PRIV PRIV [id number] [facility] 00:00:00 00:00:00 umm_S [id number] Medic al 2021-10-21 2021-10-21 Imm/Inj Vaccine, Ang Db Cbc Fam [facility] 1. [id number] [facility] 10:00:00 10:10:00 Visit Javad Barbie [facility] [id number] [facility] [id number] Avinash as SVETLANA?BLEA [id number] Hi ronald [address] MEDICAL OFFICE BUILDING 2021-10-21 2021-10-[address] [facility] [id number] Univers 10:00:00 10:00:[address] [facility] Results This patient has no known results.
[2023-06-23] MEDS ORDERED: IPRATROPIUM BROM 0.5MG/2.5ML ONE (09:46)
[2023-06-23] MEDS ORDERED: ALBUTEROL 2.5 MG/3 ML NEB SOL ONE (09:46)
[2023-06-23] MEDS ORDERED: ACETAMINOPHEN 325 MG TABLET ONE (09:57)
[2023-06-23 10:03] LABS: Protime INR 1.02
[2023-06-23 10:10] LABS: Hematocrit 32.5 % (36.0-45.0); MCV 93.9 fL (80-100); Platelets 326 thou/uL (152-406); RBC Red Blood Cell Count 3.46 M/uL (3.86-4.86)
[2023-06-23 10:19] LABS: Albumin 2.8 g/dL (3.4-5.0); Bilirubin Direct 0.3 mg/dL (0-0.2); Bilirubin Indirect, Calculated 0.4 mg/dL (0.2-0.8); Bilirubin Total 0.7 mg/dL (0.2-1.0); Magnesium 2.2 mg/dL (1.6-2.4); Potassium 3.8 mEq/L (3.5-5.1); Protein, Total 6.6 g/dL (6.4-8.2); Troponin High Sensitivity 3.6 pg/mL (<58.9)
--- NOTE | 2023-06-23 10:21 | RAD REPORT ---
EXAM DESCRIPTION: RAD - Chest Single View - 06/23/2023 9:58 am CLINICAL HISTORY: COUGH Chest pain. COMPARISON: Chest Pa And Lat (2 Views) dated 01/05/2023; Chest Pa And Lat (2 Views) dated 08/18/2019; Chest Single View dated 09/30/2018; Chest Single View dated 07/10/2018 FINDINGS: Portable technique limits examination quality. The lungs are mildly emphysematous but grossly clear. The heart is normal in size. No displaced fract ures. IMPRESSION: Mild COPD.
[2023-06-23] MEDS ORDERED: AZITHROMYCIN 500 MG INJ IVPB ONE (11:32)
[2023-06-23] MEDS ORDERED: NA CHLORIDE 0.9% 250 ML ONE (11:32)
[2023-06-23 11:56] LABS: Anisocytosis 2+; Blood Morphology Comment NOTED (NOT SEEN); Macrocytosis 1+; Platelet Estimate ADEQ
--- NOTE | 2023-06-23 12:02 | ER ---
Nurse's Notes [facility] Name: Emeli Benoit Age: 78 yrs Sex: Female : 1945 Arrival Date: 06/23/2023 Time: 09:11 Bed 5 Private MD: Joanne Oliva Diagnosis: Neutropenia, unspecified;Atypical pneumonia Presentation: 06/23 09:20 Chief complaint: Cough x 1 month, painful sores in mouth for approx 1 week, coughing up hb blood the last few days. Coronavirus screen: Client presents with at least one sign or symptom that may indicate coronavirus-19. Provider contacted for isolation considerations. Ebola Screen: No symptoms or risks identified at this time. Initial Sepsis Screen: Does the patient meet any 2 criteria? No. Patient's initial sepsis screen is negative. Does the patient have a suspected source of infection? No. Patient's initial sepsis screen is negative. Risk Assessment: Do you want to hurt yourself or someone else? Patient reports no desire to harm self or others. Onset of symptoms was May 2023. 09:20 Method Of Arrival: Ambulatory hb 09:20 Acuity: ANDRE 3 hb Historical: - Allergies: 09:22 PENICILLINS; hb - PMHx: 09:22 Arthritis; hb - Immunization history:: Adult Immunizations unknown. - Social history:: Smoking status: Patient denies any tobacco usage or history of. Screenin:20 [facility] ED Fall Risk Assessment (Adult) History of falling in the last 3 months, rs5 including since admission No falls in past 3 months (0 pts) Confusion or Disorientation No (0 pts) Intoxicated or Sedated No (0 pts) Impaired Gait No (0 pts) Mobility Assist Device Used No (0 pt) Altered Elimination No (0 pt) Score/Fall Risk Level 0 - 2 = Low Risk Oriented to surroundings, Maintained a safe environment. Abuse screen: Denies threats or abuse. Nutritional screening: No deficits noted. Tuberculosis screening: No symptoms or risk factors identified. Assessment: 09:20 General: Appears in no apparent distress. uncomfortable, Behavior is calm, cooperative. rs5 Pain: Complains of pain in mouth Pain does not radiate. Pain currently is 7 out of 10 on a pain scale. Quality of pain is described as burning, aching, Is continuous, Aggravated by eating, drinking. Neuro: Level of Consciousness is awake, alert, obeys commands, Oriented to person, place, time, situation. Cardiovascular: Heart tones S1 S2 present Rhythm is regular. Respiratory: Reports cough that is productive, Airway is patent Respiratory effort is even, unlabored, Respiratory pattern is regular, symmetrical, Breath sounds are clear bilaterally. GI: Abdomen is flat, non-distended, Bowel sounds present X 4 quads. Abd is soft and non tender X 4 quads. : No signs and/or symptoms were reported regarding the genitourinary system. EENT: Oral mucosa is moist. multiple small sores noted to inside of mouth. Derm: Skin is intact, Skin is pink, warm \T\ dry. Musculoskeletal: Range of motion: intact in all extremities. 10:46 Reassessment: Patient and/or family updated on plan of care and expected duration. Pain rs5 level reassessed. Patient is alert, oriented x 3, equal unlabored respirations, skin warm/dry/pink. Pain: Complains of pain in mouth Pain currently is 4 out of 10 on a pain scale. Quality of pain is described as aching, Is continuous. Cardiovascular: Rhythm is regular. Respiratory: Respiratory effort is even, unlabored, Respiratory pattern is regular, symmetrical. 11:32 Reassessment: No changes from previously documented assessment. rs5 12:12 Reassessment: Patient and/or family updated on plan of care and expected duration. Pain rs5 level reassessed. Patient is alert, oriented x 3, equal unlabored respirations, skin warm/dry/pink. Pt up for discharge, waiting for antibiotics to finish. 12:40 Reassessment: Antibiotics bag finished. rs5 Vital Signs: 09:20 BP 114 / 94; Pulse 106; Resp 20; Temp 98.4(TE); Pulse Ox 99% on R/A; hb 09:57 BP 110 / 90; Pulse 88; Resp 18; Temp 98.5(TE); Pulse Ox 99% on R/A; rs5 11:05 BP 98 / 68; Pulse 84; Resp 17; Pulse Ox 99% on R/A; rs5 12:15 BP 102 / 61; Pulse 90; Resp 18; Pulse Ox 99% on R/A; rs5 ED Course: 09:14 Patient arrived in ED. mr 09:14 Joanne Oliva DO is Private Physician. mr 09:14 Flor Cross, [facility] jh7 09:14 Jorge Keller MD is Attending Physician. jh7 09:20 Patient has correct armband on for positive identification. Placed in gown. Bed in low rs5 position. Call light in reach. Side rails up X2. 09:22 Triage completed. hb 09:24 Nathanael Sykes, RN is Primary Nurse. rs5 09:30 Inserted saline lock: 20 gauge in right antecubital area, using aseptic technique. rs5 Blood collected. 09:59 XRAY Chest (1 view) In Process Unspecified. EDMS 12:01 Joanne Oliva DO is Referral Physician. 7 12:51 No provider procedures requiring assistance completed. IV discontinued, intact, rs5 bleeding controlled, No redness/swelling at site. Pressure dressing applied. Administered Medications: 09:48 Drug: DuoNeb Nebulize (2.5 mg - 0.5 mg) 3 ml Nebulizer once Route: Nebulizer; rs5 10:07 Follow up: Response: No adverse reaction rs5 09:48 Not Given (Not available at this moment, provider notifiedd): viscous lidocaineliquid rs5 (4 %) 10 ml Mucous Membrane once; swish and spit 09:48 Drug: Acetaminophen PO 650 mg PO once Route: PO; rs5 10:46 Follow up: Response: (VIS) Vaccine information sheet provided today. Questions and/or rs5 concerns addressed. VIS edition date: Feb 25, 2021.; Pain is decreased 11:30 Drug: AZITHromycin IVPB 500 mg IVPB once over 1 hrs; (mix in 250 mL NS) Route: IVPB; rs5 Infused Over: 1 hrs; Site: left antecubital; 11:50 Follow up: Response: No adverse reaction rs5 Medication: 12:14 VIS not applicable for this client. rs5 Outcome: 12:02 Discharge ordered by . jh7 12:51 Discharged to home via wheelchair, with family, rs5 12:51 Condition: stable 12:51 Discharge instructions given to patient, family, Instructed on discharge instructions, follow up and referral plans. medication usage, Demonstrated understanding of instructions, follow-up care, medications, Prescriptions given X 3, 12:53 Patient left the ED. rs5 Signatures: [facility], Reg Reg mr Maya Freire, RN RN hb Flor Cross, HEALTHCARE OR MEDICAL HEALTHCARE OR MEDICAL jh7 Nathanael Sykes RN RN rs5
--- NOTE | 2023-06-23 12:02 | EDPHYS ---
Physician Documentation [facility] Name: Emeli Benoit Age: 78 yrs Sex: Female : 1945 Arrival Date: 06/23/2023 Time: 09:11 Bed 5 Private MD: Joanne Oliva ED Physician Jorge Keller HPI: 06/23 09:20 This 78 yrs old Female presents to ER via Ambulatory with complaints of Lips jh7 Swelling, Coughing up blood, mouth sores. 09:20 78-year-old female presents to the ER complaining of a cough for 1 month. The patient jh7 states that she is had mouth sores on her lower lip causing it to swell. She also states that within the past week there have been small streaks of blood with the mucus from her cough. She has a history of COPD.. Historical: - Allergies: 09:22 PENICILLINS; hb - PMHx: 09:22 Arthritis; hb - Immunization history:: Adult Immunizations unknown. - Social history:: Smoking status: Patient denies any tobacco usage or history of. ROS: 09:20 Eyes: Negative for injury, pain, redness, and discharge, Neck: Negative for injury, jh7 pain, and swelling, Cardiovascular: Negative for chest pain, palpitations, and edema, Back: Negative for injury and pain, MS/Extremity: Negative for injury and deformity, Skin: Negative for injury, rash, and discoloration, Neuro: Negative for headache, weakness, numbness, tingling, and seizure, 09:20 Constitutional: Positive for fatigue, 09:20 ENT: Positive for mouth sores, 09:20 Respiratory: Positive for cough, with yellow sputum, hemoptysis, 09:20 All other systems are negative, Exam: 09:20 Eyes: Pupils equal round and reactive to light, extra-ocular motions intact. Lids and jh7 lashes normal. Conjunctiva and sclera are non-icteric and not injected. Cornea within normal limits. Periorbital areas with no swelling, redness, or edema. Neck: Trachea midline, no thyromegaly or masses palpated, and no cervical lymphadenopathy. Supple, full range of motion without nuchal rigidity, or vertebral point tenderness. No Meningismus. Cardiovascular: Regular rate and rhythm with a normal S1 and S2. No gallops, murmurs, or rubs. Normal PMI, no JVD. No pulse deficits. Abdomen/GI: Soft, non-tender, with normal bowel sounds. No distension or tympany. No guarding or rebound. No evidence of tenderness throughout. Back: No spinal tenderness. No costovertebral tenderness. Full range of motion. Skin: Warm, dry with normal turgor. Normal color with no rashes, no lesions, and no evidence of cellulitis. MS/ Extremity: Pulses equal, no cyanosis. Neurovascular intact. Full, normal range of motion. Neuro: Awake and alert, GCS 15, oriented to person, place, time, and situation. Motor strength 5/5 in all extremities. Sensory grossly intact. Normal gait. 09:20 Constitutional: The patient appears alert, awake, uncomfortable, 09:20 ENT: Mouth: Open sores with scant bleeding noted on the inner lower lip., 09:20 Respiratory: the patient does not display signs of respiratory distress, Respirations: normal, Breath sounds: decreased breath sounds, that are mild, are scattered, Vital Signs: 09:20 BP 114 / 94; Pulse 106; Resp 20; Temp 98.4(TE); Pulse Ox 99% on R/A; hb 09:57 BP 110 / 90; Pulse 88; Resp 18; Temp 98.5(TE); Pulse Ox 99% on R/A; rs5 11:05 BP 98 / 68; Pulse 84; Resp 17; Pulse Ox 99% on R/A; rs5 12:15 BP 102 / 61; Pulse 90; Resp 18; Pulse Ox 99% on R/A; rs5 MDM: 09:15 Patient medically screened. [facility] 12:00 Differential diagnosis: aphthous ulcers, gingivostomatitis, Bronchitis, pneumonia, [facility] sepsis, lung CA. Data reviewed: vital signs, nurses notes, lab test result(s), EKG, radiologic studies, plain films. I considered the following discharge prescriptions or medication management in the emergency department Medications were administered in the Emergency Department. See MAR. Independent interpretation of the following test(s) in the Emergency Department EKG: See my EKG interpretation above. Care significantly affected by the following chronic conditions: Chronic Obstructive Pulmonary Disease. Counseling: I had a detailed discussion with the patient and/or guardian regarding the historical points, exam findings, and any diagnostic results supporting the discharge/admit diagnosis, the need for outpatient follow up, a laundry pricing clerk, to return to the emergency department if symptoms worsen or persist or if there are any questions or concerns that arise at home. Response to treatment: the patient's symptoms have mildly improved after treatment. Special discussion: Advised the patient to follow-up with rheumatology for autoimmune work-up as discussed. Informed the patient that she was neutropenic and that we will give antibiotics to cover for atypical pneumonia at this time. The patient has no history of neutropenia and will follow-up.. 06/23 09:24 Order name: Basic Metabolic Panel; Complete Time: 10:23 [facility] 06/23 09:24 Order name: CBC with Diff; Complete Time: 11:59 [facility] 06/23 09:24 Order name: LFT's; Complete Time: 10:23 [facility] 06/23 09:24 Order name: Magnesium; Complete Time: 10:23 [facility] 06/23 09:24 Order name: NT PRO-BNP; Complete Time: 10:23 [facility] 06/23 09:24 Order name: PT-INR; Complete Time: 10:08 [facility] 06/23 09:24 Order name: Troponin HS; Complete Time: 10:23 [facility] 06/23 10:19 Order name: Manual Differential; Complete Time: 11:59 EDMS 06/23 09:24 Order name: XRAY Chest (1 view); Complete Time: 10:23 [facility] 06/23 09:24 Order name: EKG; Complete Time: 09:24 [facility] 06/23 09:24 Order name: Cardiac monitoring; Complete Time: :35 [facility] 06/23 09:24 Order name: EKG - Nurse/Tech; Complete Time: :35 [facility] 06/23 09:24 Order name: IV Saline Lock; Complete Time: :48 [facility] 06/23 09:24 Order name: Labs collected and sent; Complete Time: :48 [facility] 06/23 09:24 Order name: O2 Per Protocol; Complete Time: :35 [facility] 06/23 09:24 Order name: O2 Sat Monitoring; Complete Time: :35 [facility] EC:29 Rate is 87 beats/min. Rhythm is regular. QRS [place] is Normal. CO interval is normal at 7 136 msec. QRS interval is normal at 72 msec. QT interval is normal at 352 msec. No Q waves. T waves are Normal. No ST changes noted. Clinical impression: Normal ECG. Administered Medications: 09:48 Drug: DuoNeb Nebulize (2.5 mg - 0.5 mg) 3 ml Nebulizer once Route: Nebulizer; rs5 10:07 Follow up: Response: No adverse reaction rs5 09:48 Not Given (Not available at this moment, provider notifiedd): viscous lidocaineliquid rs5 (4 %) 10 ml Mucous Membrane once; swish and spit 09:48 Drug: Acetaminophen PO 650 mg PO once Route: PO; rs5 10:46 Follow up: Response: (VIS) Vaccine information sheet provided today. Questions and/or rs5 concerns addressed. VIS edition date: Feb 25, 2021.; Pain is decreased 11:30 Drug: AZITHromycin IVPB 500 mg IVPB once over 1 hrs; (mix in 250 mL NS) Route: IVPB; rs5 Infused Over: 1 hrs; Site: left antecubital; 11:50 Follow up: Response: No adverse reaction rs5 Disposition Summary: 06/23/23 12:02 Discharge Ordered Notes: Location: Home [facility] Problem: new [facility] Symptoms: have improved [facility] Condition: Stable [facility] Diagnosis - Neutropenia, unspecified [facility] - Atypical pneumonia [facility] Followup: [facility] - With: Joanne Oliva DO - When: 2 - 3 days - Reason: Recheck today's complaints Discharge Instructions: - Discharge Summary Sheet [facility] - Neutropenia [facility] - Cough, Adult [facility] Forms: - Medication Reconciliation Form [facility] - Thank You Letter [facility] - Antibiotic Education [facility] - Patient Portal Instructions [facility] - Leadership Thank You Letter [facility] Prescriptions: - albuterol sulfate 90 mcg/actuation Inhalation HFA Aerosol Inhaler - inhale 1 puff INHALATION route every 4-6 hours As needed; 1 Each; Refills: 0, [facility] Product Selection Permitted - Tessalon Perles 100 mg Oral Capsule - take 1 capsule ORAL route every 8 hours As needed; 15 capsule; Refills: 0, [facility] Product Selection Permitted - Doxycycline Hyclate 100 mg Oral tablet - take 1 tablet ORAL route every 12 hours for 7 days; 14 tablet; Refills: 0, [facility] Product Selection Permitted Signatures: Dispatcher [facility] AmericaMaya Boo RN RN Flor Davidson FNP [employer] jh7 Nathanael Sykes, RN RN rs5
[2023-06-23 13:01] VITALS: O2SAT 99
[2023-06-23 13:12] VITALS: TEMP 98.5
[2023-06-23 13:19] VITALS: BP 102/61
--- NOTE | 2023-06-26 13:40 | EKG ---
Test Date: 2023-06-23 Test Time: 09:29:44 District Operations Manager: JORDIN MEASUREMENT RESULTS: Intervals: Rate: 87 VT: 136 QRSD: 72 QT: 352 QTc: 423 [place]: P: 55 VT: 136 QRS: 68 T: 85 INTERPRETIVE STATEMENTS: Normal sinus rhythm Normal ECG Compared to ECG 09/30/2018 23:21:13 No significant changes Electronically Signed On 06-26-23 13:30:39 ELEVATOR WORKER by Abdullahi Tucker
== END 2023-06-23 12:53 | disposition home or self-care (01) ==
LOC: ER 09:11
DX: J18.9 Pneumonia, unspecified organism (principal); D70.9 Neutropenia, unspecified; Z88.0 Allergy status to penicillin
CPT/HCPCS: 93005; 85025; 80048; 36415; 83735; 85610; 80076; 84484; 83880; 71045; 94640; 96374; 99285; J7613; J7644; J7050

== ENCOUNTER 2023-07-06 12:19 | Emergency (ER) | payer OTHER ==
--- OUTSIDE RECORDS SUMMARY | 2023-07-06 12:24 | XMS REPORT | Continuity of Care Document ---
Author Name Unknown Address [address] [facility] [address] [place] [address] [facility] thconnect Address [address] [facility] [address] [place] [address] Care Team Providers Care Research Consultant Name Role Phone Zulema BRICE, Parvez R Primary Care Physician Parvez Poole Attending Clinician Unavaila HARISH Weiss Attending Clinician Unavailable NATALI PATINO Attending Clinician Jennifer vailable [email or web address] Attending Clinician Unavaila ble Vaccine, Ang Db Cbc Fam Attending Clinician Unav ailable Barbie Tellez MD Attending Clinician [phone] BARBIE TELLEZ Attending Clinician Unavailable GÓMEZ JACKSON Admitting Clinician Unavailab le [email or web address] Admitting Clinician Unavaila ble Payers Payer Name Policy Type Policy Number Effective Date Expirati on Date Source [employer]VANTAGE O [id number] 2020 00:00:00 Problems Condition Name Condition Details Condition Category Status Onset Date Resolution Date Last Treatment Date Treating Clinician Comments Source Post-op pain Post-op pain Disease Active 01-25 00:00: 00 [facility] Allergies, Adverse Reactions, Alerts Allergy Name Allergy Type Status Severity Reaction(s) Onset Date Inactive Date Treating Clinician Comments Source PENICILL INS Drug Class Active Med Hives 01-24 00:00: 00 [facility] Penicill ins Propensi ty to adverse reaction s to drug Active Rash 01-24 00:00: 00 [facility] Social History Social Habit Start Date Stop Date Quantity Comments Source Exposure to SARS-CoV-2 (event) Not sure [facility] History of tobacco use Cigarette Smoker [facility] Alcohol intake 2016-01-28 00:00:00 2016-01-28 00:00:00 0 /d [facility] Tobacco Comment 2016-01-26 00:00:00 2016-01-26 00:00:00 Patient stated she quit 2 days ago prior to surgery [facility] Tobacco use and exposure 2016-01-25 00:00:00 2016-01-25 00:00:00 Never used [facility] Sex Ass[birth year] At 1945 00:00:00 1945 00[birth year]:00 [facility] Smoking Status Start Date Stop Date Source Current some day smoker 2016-01-25 00:00:00 [facility] Medications Ordered Medication Name Filled Medication Name Start Date Stop Date Current Medication? Ordering Clinician Indication Dosage Frequency Signature (SIG) Comments Components Source acetaminoph en-codeine (TYLENOL #3) 300-30 mg tablet 01-26 00:00: 00 Yes 1{tbl} Take 1 tablet by mouth every 4 (four) hours as needed for Pain unrelieved by non-narcot ic analgesics . [facility] Procedures Procedure Date / Time Performed Performing Clinicia n Source SARS-COV-2 COVID-19 VACCINE BOOSTER,0.25ML,IM (MODERNA) 2021-10-21 14:59:21 Doctor Unassigned, [place] [facility] Encounters Start Date/Time End Date/Time Encounter Type Admission Type Attending Clinicians Care Facility Care Department Encounter ID Source 2022-12-21 10:27:01 Outpatient Parvez Najera [facility] [id number] 2021-10-28 07:58:01 Outpatient JeffmmParvez reyes [facility] [id number] [facility] 2021-10-12 08:44:04 Outpatient JeffmmParvez reyes [facility] [id number] [facility] 2021-09-26 08:12:02 Outpatient Parvez Najera [facility] [id number] [facility] 2023-07-25 12:00:00 2023-07-25 12:00:00 Outpatient SARY HARISH [facility] [id number] [facility] 2023-06-25 23:58:00 2023-07-02 14:30:00 Inpatient NATALI SALAS [facility] [id number] [facility] 2023-05-23 00:00:00 2023-05-23 00:00:00 Outpatient [email or web address] [facility] [id number] [facility] 2021-10-21 10:00:00 2021-10-21 10:10:00 Imm/Inj Visit Vaccine, Ang Db Cbc Barbie Walden [facility] [id number] [facility] 2021-10-21 10:00:00 2021-10-21 10:00:00 Outpatient BARBIE NUNEZ [facility] [id number] [facility]
--- NOTE | 2023-07-06 15:23 | RAD REPORT ---
[facility]23 2:33 pm CLINICAL HISTORY: COUGH COMPARISON: Chest Single View dated 06/23/2023; Chest Pa And Lat (2 Views) dated 01/05/2023; Chest Pa And Lat (2 Views) dated 08/18/2019; Chest Single View dated 09/30/2018 TECHNIQUE: Portable AP view of the chest. FINDINGS: The lungs are clear. No pneumothorax or effusion. The cardiomediastinal contours are unre markable. IMPRESSION: No acute cardiopulmonary process.
--- NOTE | 2023-07-06 15:29 | ER ---
Nurse's Notes [facility] Name: Emeli Benoit Age: 78 yrs Sex: Female : 1945 Arrival Date: 07/06/2023 Time: 12:19 Bed DX5 Private MD: Diagnosis: Cough;Wheezing;Other forms of stomatitis;apthous ulcers Presentation: 07/06 12:51 Chief complaint: Patient states: "I was in [facility] last week and they said I hb had been poisoned, I have sores in my mouth and my lower lip is swollen and perera, it is not getting any better.". Coronavirus screen: At this time, the client does not indicate any symptoms associated with coronavirus-19. Ebola Screen: No symptoms or risks identified at this time. Initial Sepsis Screen: Does the patient meet any 2 criteria? No. Patient's initial sepsis screen is negative. Does the patient have a suspected source of infection? No. Patient's initial sepsis screen is negative. Risk Assessment: Do you want to hurt yourself or someone else? Patient reports no desire to harm self or others. Onset of symptoms was June 29, 2023. 12:51 Method Of Arrival: Ambulatory hb 12:51 Acuity: ANDRE 4 hb Triage Assessment: 16:01 General: Appears in no apparent distress. uncomfortable, Behavior is calm, cooperative, bp appropriate for age. Pain: Complains of pain in mouth. Historical: - Allergies: 12:54 PENICILLINS; hb - PMHx: 12:54 Arthritis; hb - Immunization history:: Adult Immunizations up to date. - Social history:: Smoking status: Patient denies any tobacco usage or history of. - Family history:: not pertinent. - Hospitalizations: : Patient was recently seen at [facility], . - History obtained from: , patient was diagnosed with walking pna last week. Screenin:59 [facility] ED Fall Risk Assessment (Adult) History of falling in the last 3 months, bp including since admission No falls in past 3 months (0 pts). Abuse screen: Denies threats or abuse. Denies injuries from another. Nutritional screening: No deficits noted. Tuberculosis screening: No symptoms or risk factors identified. Vital Signs: 12:51 BP 133 / 92; Pulse 75; Resp 16; Temp 98.2; Pulse Ox 100% on R/A; Weight 55.34 kg; hb Height 5 ft. 0 in. ; Pain 9/10; 12:51 Body Mass Index 23.83 (55.34 kg, 152.4 cm) hb 12:51 Pain Scale: Adult hb ED Course: 12:23 Patient arrived in ED. rg4 12:49 Ivonne Christensen MD is Attending Physician. cp3 12:54 Triage completed. hb 12:54 Arm band placed on. hb 14:35 XRAY Chest Pa And Lat (2 Views) In Process Unspecified. EDMS 15:28 Julio Randall DO is Referral Physician. cp3 15:59 Joel Sosa, RN is Primary Nurse. bp 15:59 Patient has correct armband on for positive identification. bp 16:00 No provider procedures requiring assistance completed. Patient did not have IV access bp during this emergency room visit. Administered Medications: 15:59 Drug: Lidocaine-Tetracaine Topical 1 application Topical once Route: Topical; Site: bp affected area; Outcome: 15:29 Discharge ordered by . cp3 16:00 Discharged to home ambulatory, bp 16:00 Condition: good 16:00 Discharge instructions given to patient, Instructed on discharge instructions, follow up and referral plans. medication usage, wound care, Demonstrated understanding of instructions, follow-up care, medications, wound care, Prescriptions given X 2, 16:02 Patient left the ED. bp Signatures: Dispatcher [employer] EDDE Ivonne Christensen MD MD 3 Maya Freire, АНДРЕЙ RN Jazz Lyon 4 Joel Sosa, АНДРЕЙ RN bp
--- NOTE | 2023-07-06 15:29 | EDPHYS ---
Physician Documentation [facility] Name: Emeli Benoit Age: 78 yrs Sex: Female : 1945 Arrival Date: 07/06/2023 Time: :19 Bed DX5 Private MD: ED Physician Ivonne Christensen HPI: 07/06 14:02 This 78 yrs old Female presents to ER via Ambulatory with complaints of Lips cp3 Swelling. 14:02 Patient is a 78-year-old female with a history of arthritis who presents to the ED cp3 secondary to cough, congestion, upper and lower lip pain. Patient had a history of aphthous ulcers treated last week but still having pain. Historical: - Allergies: 12:54 PENICILLINS; hb - PMHx: 12:54 Arthritis; hb - Immunization history:: Adult Immunizations up to date. - Social history:: Smoking status: Patient denies any tobacco usage or history of. - Family history:: not pertinent. - Hospitalizations: : Patient was recently seen at [facility], . - History obtained from: , patient was diagnosed with walking pna last week. ROS: 14:02 Constitutional: Negative for fever, chills, and weight loss, Eyes: Negative for injury, cp3 pain, redness, and discharge, ENT: Negative for injury, pain, and discharge, Neck: Negative for injury, pain, and swelling, Cardiovascular: Negative for chest pain, palpitations, and edema, 14:02 Respiratory: Negative for shortness of breath, cough, wheezing, and pleuritic chest pain, Abdomen/GI: Negative for abdominal pain, nausea, vomiting, diarrhea, and constipation, Back: Negative for injury and pain, MS/Extremity: Negative for injury and deformity, Skin: Negative for injury, rash, and discoloration, Neuro: Negative for headache, weakness, numbness, tingling, and seizure, Psych: Negative for depression, anxiety, suicide ideation, homicidal ideation, and hallucinations, Allergy/Immunology: Negative for hives, rash, and allergies, Endocrine: Negative for neck swelling, polydipsia, polyuria, polyphagia, and marked weight changes, Hematologic/Lymphatic: Negative for swollen nodes, abnormal bleeding, and unusual bruising, 14:02 ENT: Positive for of the mouth, lip pain, 14:02 Respiratory: Positive for cough, Exam: 14:02 Constitutional: This is a well developed, well nourished patient who is awake, alert, cp3 and in no acute distress. Head/Face: Normocephalic, atraumatic. Eyes: Pupils equal round and reactive to light, extra-ocular motions intact. Lids and lashes normal. Conjunctiva and sclera are non-icteric and not injected. Cornea within normal limits. Periorbital areas with no swelling, redness, or edema. Neck: Trachea midline, no thyromegaly or masses palpated, and no cervical lymphadenopathy. Supple, full range of motion without nuchal rigidity, or vertebral point tenderness. No Meningismus. Chest/axilla: Normal chest wall appearance and motion. Nontender with no deformity. No lesions are appreciated. Cardiovascular: Regular rate and rhythm with a normal S1 and S2. No gallops, murmurs, or rubs. Normal PMI, no JVD. No pulse deficits. 14:02 Back: No spinal tenderness. No costovertebral tenderness. Full range of motion. MS/ Extremity: Pulses equal, no cyanosis. Neurovascular intact. Full, normal range of motion. Neuro: Awake and alert, GCS 15, oriented to person, place, time, and situation. Cranial nerves II-XII grossly intact. Motor strength 5/5 in all extremities. Sensory grossly intact. Cerebellar exam normal. Normal gait. Psych: Awake, alert, with orientation to person, place and time. Behavior, mood, and affect are within normal limits. 14:02 Respiratory: + cough no wheezing, Vital Signs: 12:51 BP 133 / 92; Pulse 75; Resp 16; Temp 98.2; Pulse Ox 100% on R/A; Weight 55.34 kg; hb Height 5 ft. 0 in. ; Pain 9/10; 12:51 Body Mass Index 23.83 (55.34 kg, 152.4 cm) hb 12:51 Pain Scale: Adult hb MDM: 12:49 Patient medically screened. cp3 14:02 Differential diagnosis: stomatitis, apthous ulcers, cough, bronchitis, pna. Data cp3 reviewed: vital signs, nurses notes. Consideration of Admission/Observation Escalation of care including admission/observation considered. patient declined. I considered the following discharge prescriptions or medication management in the emergency department Medications were administered in the Emergency Department. See MAR. Historians other than the Patient: Spouse/Significant Other: patient with cough . 15:27 Response to treatment: the patient's symptoms have mildly improved after treatment. cp3 07/06 14:01 Order name: XRAY Chest Pa And Lat (2 Views); Complete Time: 15:27 cp3 Administered Medications: 15:59 Drug: Lidocaine-Tetracaine Topical 1 application Topical once Route: Topical; Site: bp affected area; Disposition Summary: 07/06/23 15:29 Discharge Ordered Notes: Location: Home cp3 Condition: Stable cp3 Diagnosis - Cough cp3 - Wheezing cp3 - Other forms of stomatitis cp3 - apthous ulcers cp3 Followup: cp3 - With: Julio Randall DO - When: 24 Hours - Reason: Recheck today's complaints Discharge Instructions: - Discharge Summary Sheet cp3 - Cough, Adult, [id number] cp3 - Stomatitis, [id number] cp3 Forms: - Medication Reconciliation Form cp3 - Thank You Letter cp3 - Antibiotic Education cp3 - Prescription Opioid Use cp3 - Patient Portal Instructions cp3 - Leadership Thank You Letter cp3 Prescriptions: - Doxycycline Hyclate 100 mg Oral Tablet - take 1 tablet ORAL route every 12 hours; 20 tablet; Refills: 0, Product cp3 Selection Permitted - Prednisone 20 mg Oral Tablet - take 2 tablets ORAL route once daily for 5 days; 10 tablet; Refills: 0, Product cp3 Selection Permitted Signatures: Dispatcher [employer] Ivonne Pringle MD MD cp3 Maya Freire RN RN Joel Arango RN RN bp
[2023-07-06] MEDS ORDERED: LIDOCAINE HCL JELLY 2% 6 ML SYRINGE TOP ONE (15:54)
[2023-07-06 16:23] VITALS: BP 133/92; TEMP 98.2; O2SAT 100
== END 2023-07-06 16:02 | disposition home or self-care (01) ==
LOC: ER 12:19
DX: R05.9 Cough, unspecified (principal); R06.2 Wheezing; K12.0 Recurrent oral aphthae; Z88.0 Allergy status to penicillin
CPT/HCPCS: 71046; 99283

== ENCOUNTER → 2023-07-12 | Emergency (ER) | payer OTHER ==
[~2023-07-12] MED LIST: HYDROCODONE/APAP 10/325 TAB ONE
--- OUTSIDE RECORDS SUMMARY | 2023-07-12 09:38 | XMS REPORT | Continuity of Care Document ---
Author Name Unknown Address [address] [place] [address] [facility] Address [address] [place] [address] Care Team Providers Care Patient Financial Counselor Name Role Phone Parvez Poole MD R Primary Care Physician Parvez Poole Attending Clinician Unavaila HARISH Weiss Attending Clinician Unavailable NATALI PATINO Attending Clinician Ejnnifer vailable [email or web address] Attending Clinician Unavaila ble Vaccine, Ang Db Cbc Fam Attending Clinician Unav ailable Barbie Tellez MD Attending Clinician [phone] BARBIE TELLEZ Attending Clinician Unavailable GÓMEZ JACKSON Admitting Clinician Unavailab le [email or web address]_S Admitting Clinician Unavaila ble Payers Payer Name Policy Type Policy Number Effective Date Expirati on Date Source [employer] HMO [id number] 2020 00:00:00 Problems Condition Name Condition Details Condition Category Status Onset Date Resolution Date Last Treatment Date Treating Clinician Comments Source Post-op pain Post-op pain Disease Active 01-25 00:00: 00 [facility] Allergies, Adverse Reactions, Alerts Allergy Name Allergy Type Status Severity Reaction(s) Onset Date Inactive Date Treating Clinician Comments Source PENICILL INS Drug Class Active Med Hives 01-24 00:00: 00 [facility] Penicill ins Propensi ty to adverse reaction s to drug Active Rash 01-24 00:00: 00 [facility] Social History Social Habit Start Date Stop Date Quantity Comments Source Exposure to SARS-CoV-2 (event) Not sure [facility] History of tobacco use Cigarette Smoker [facility] Alcohol intake 2016-01-28 00:00:00 2016-01-28 00:00:00 0 /d [facility] Tobacco Comment 2016-01-26 00:00:00 2016-01-26 00:00:00 Patient stated she quit 2 days ago prior to surgery [facility] Tobacco use and exposure 2016-01-25 00:00:00 2016-01-25 00:00:00 Never used [facility] Sex Ass[birth year] At 1945 00:00:00 1945 00:00:00 [facility] Smoking Status Start Date Stop Date Source Current some day smoker 2016-01-25 00:00:00 [facility] Medications Ordered Medication Name Filled Medication Name Start Date Stop Date Current Medication? Ordering Clinician Indication Dosage Frequency Signature (SIG) Comments Components Source acetaminoph en-codeine (TYLENOL #3) 300-30 mg tablet 01-26 00:00: 00 Yes 1{tbl} Take 1 tablet by mouth every 4 (four) hours as needed for Pain unrelieved by non-narcot ic analgesics . [facility] Procedures Procedure Date / Time Performed Performing Clinicia n Source SARS-COV-2 COVID-19 VACCINE BOOSTER,0.25ML,IM (MODERNA) 2021-10-21 14:59:21 Doctor Unassigned, [place] [facility] Encounters Start Date/Time End Date/Time Encounter Type Admission Type Attending Clinicians Care Facility Care Department Encounter ID Source 2022-12-21 10:27:[address] [facility] [id number] [facility] 2021-10-28 07:58:01 Outpatient Carritegummul Parvez lara [facility] [id number] [facility] 2021-10-12 08:44:04 [facility] [id number] [facility] 2021-09-26 08:12:[address] [facility] [id number] [facility] 2023-07-25 12:00:00 2023-07-25 12:00:00 Outpatient HARISH OKEEFE [facility] [id number] [facility] 2023-06-25 23:58:00 2023-07-02 14:30:00 Inpatient NATALI SALAS [facility] [id number] [facility] 2023-05-23 00:00:00 2023-05-23 00:00:00 Outpatient [email or web address] [email or web address]_S [facility] [id number] [facility] 2021-10-21 10:00:00 2021-10-21 10:10:00 Imm/Inj Visit Vaccine, Ang Db Cbc Barbie Walden [facility] [id number] [facility] 2021-10-21 10:00:00 2021-10-21 10:00:00 Outpatient BARBIE NUNEZ [facility] [id number] [facility]
[2023-07-12 11:11] LABS: Absolute Lymphocytes (CBC) 2.5 K/uL (0.7-4.9); Hematocrit 34.2 % (36.0-45.0); Lymphocytes % 23.1 % (15.3-44.8); MCV 96.2 fL (80-100); MPV 7.2 fL (7.6-11.3); Platelets 550 thou/uL (152-406); RBC Red Blood Cell Count 3.56 M/uL (3.86-4.86)
[2023-07-12 11:28] LABS: Bilirubin Total 0.3 mg/dL (0.2-1.0); Protein, Total 6.5 g/dL (6.4-8.2)
--- NOTE | 2023-07-12 11:40 | ER ---
Nurse's Notes [facility] Name: Emeli Benoit Age: 78 yrs Sex: Female : 1945 Arrival Date: 07/12/2023 Time: 09:35 Bed 9 Private MD: Diagnosis: Herpesviral gingivostomatitis and pharyngotonsillitis Presentation: 07/12 09:58 Chief complaint: Patient states: she has been getting sores in her mouth for 6-8 weeks ap3 now after getting a medication for her autoimmune disease. patient states she has been evaluated multiple times for this issue. patient states she is having a hard time eating due to increased irritation. Coronavirus screen: At this time, the client does not indicate any symptoms associated with coronavirus-19. Ebola Screen: No symptoms or risks identified at this time. Initial Sepsis Screen: Does the patient meet any 2 criteria? No. Patient's initial sepsis screen is negative. Does the patient have a suspected source of infection? No. Patient's initial sepsis screen is negative. Risk Assessment: Do you want to hurt yourself or someone else? Patient reports no desire to harm self or others. Onset of symptoms is unknown. 09:58 Method Of Arrival: Ambulatory ap3 09:58 Acuity: ANDRE 4 ap3 11:03 Acuity: ANDRE 3 iw Triage Assessment: 10:00 General: Appears in no apparent distress. Behavior is calm, cooperative. Pain: ap3 Complains of pain in mouth Pain currently is 10 out of 10 on a pain scale. Neuro: Level of Consciousness is awake, alert, obeys commands, Oriented to person, place, time, situation, Appropriate for age. Cardiovascular: Patient's skin is warm and dry. Respiratory: Airway is patent Respiratory effort is even, unlabored, Respiratory pattern is regular, symmetrical. Historical: - Allergies: 10:00 PENICILLINS; ap3 - PMHx: 10:00 Arthritis; ap3 - Immunization history:: Client reports receiving the 2nd dose of the Covid vaccine, Flu vaccine is up to date. - Social history:: Smoking status: Patient reports the use of cigarette tobacco products. - Family history:: not pertinent. Screenin:00 [facility] ED Fall Risk Assessment (Adult) History of falling in the last 3 months, ap3 including since admission No falls in past 3 months (0 pts). Abuse screen: Denies threats or abuse. Nutritional screening: No deficits noted. Tuberculosis screening: No symptoms or risk factors identified. Assessment: 11:00 General: Appears in no apparent distress. Behavior is calm, cooperative. Pain: iw Complains of pain in mouth. Vital Signs: 09:58 BP 157 / 75; Pulse 58; Resp 18; Temp 97; Pulse Ox 98% ; Weight 56.7 kg; Height 5 ft. 0 ap3 in. ; Pain 10; 09:58 Body Mass Index 24.41 (56.70 kg, 152.4 cm) ap3 09:58 Pain Scale: Adult ap3 ED Course: 09:36 Patient arrived in ED. rg4 09:37 Conner Baez MD is Attending Physician. rt 09:59 Triage completed. ap3 10:00 Arm band placed on right wrist. ap3 11:03 Nina Velazquez RN is Primary Nurse. iw 11:03 Initial lab(s) drawn, by sc, sent to lab. Inserted saline lock: 22 gauge in right iw antecubital area, using aseptic technique. Blood collected. 12:07 No provider procedures requiring assistance completed. IV discontinued, intact, iw bleeding controlled, No redness/swelling at site. Pressure dressing applied. Administered Medications: 11:28 Drug: [place] PO 10 mg-325 mg 1 tabs PO once Route: PO; iw Medication: 17:04 VIS not applicable for this client. iw Outcome: 11:40 Discharge ordered by . rt 12:07 Discharged to home ambulatory, with family, iw 12:07 Condition: good 12:07 Discharge instructions given to patient, family, Instructed on discharge instructions, follow up and referral plans. Demonstrated understanding of instructions, follow-up care, 12:08 Patient left the ED. iw Signatures: Nina Velazquez, RN Jazz Hirsch rg4 Yola Harden RN RN ap3 Conner Baez MD MD rt
--- NOTE | 2023-07-12 11:40 | EDPHYS ---
Physician Documentation [facility] Name: Emeli Benoit Age: 78 yrs Sex: Female : 1945 Arrival Date: 07/12/2023 Time: 09:35 Bed 9 Private MD: ED Physician Conner Baez HPI: 07/12 14:17 This 78 yrs old Female presents to ER via Ambulatory with complaints of rt Medication Reaction. 14:17 Patient presents to the ED with the persistence of ulceration, stomatitis that perera rt when she eats, making it difficult for her to eat. Denies other acute complaints at this time, symptoms are moderate in severity, no other aggravating alleviating factors.. Historical: - Allergies: 10:00 PENICILLINS; ap3 - PMHx: 10:00 Arthritis; ap3 - Immunization history:: Client reports receiving the 2nd dose of the Covid vaccine, Flu vaccine is up to date. - Social history:: Smoking status: Patient reports the use of cigarette tobacco products. - Family history:: not pertinent. ROS: 14:17 Constitutional: Negative for fever, chills, and weight loss, Cardiovascular: Negative rt for chest pain, palpitations, and edema, Respiratory: Negative for shortness of breath, cough, wheezing, and pleuritic chest pain, Abdomen/GI: Negative for abdominal pain, nausea, vomiting, diarrhea, and constipation, Skin: Negative for injury, rash, and discoloration, Neuro: Negative for headache, weakness, numbness, tingling, and seizure, Psych: Negative for depression, anxiety, suicide ideation, homicidal ideation, and hallucinations, 14:17 ENT: Positive for Oral pain, ulcerations, Exam: 14:17 Constitutional: This is a well developed, well nourished patient who is awake, alert, rt and in no acute distress. Head/Face: Normocephalic, atraumatic. Chest/axilla: Normal chest wall appearance and motion. Nontender with no deformity. No lesions are appreciated. Cardiovascular: Regular rate and rhythm with a normal S1 and S2. No gallops, murmurs, or rubs. Normal PMI, no JVD. No pulse deficits. Respiratory: Lungs have equal breath sounds bilaterally, clear to auscultation and percussion. No rales, rhonchi or wheezes noted. No increased work of breathing, no retractions or nasal flaring. Abdomen/GI: Soft, non-tender, with normal bowel sounds. No distension or tympany. No guarding or rebound. No evidence of tenderness throughout. Skin: Warm, dry with normal turgor. Normal color with no rashes, no lesions, and no evidence of cellulitis. MS/ Extremity: Pulses equal, no cyanosis. Neurovascular intact. Full, normal range of motion. Neuro: Awake and alert, GCS 15, oriented to person, place, time, and situation. Cranial nerves II-XII grossly intact. Motor strength 5/5 in all extremities. Sensory grossly intact. Cerebellar exam normal. Normal gait. Psych: Awake, alert, with orientation to person, place and time. Behavior, mood, and affect are within normal limits. 14:17 ENT: Swelling, possible vesicular rash noted to the upper and lower lips, no other rash noted. Vital Signs: 09:58 BP 157 / 75; Pulse 58; Resp 18; Temp 97; Pulse Ox 98% ; Weight 56.7 kg; Height 5 ft. 0 ap3 in. ; Pain 10/10; 09:58 Body Mass Index 24.41 (56.70 kg, 152.4 cm) ap3 09:58 Pain Scale: Adult ap3 MDM: 10:11 Patient medically screened. rt 14:17 Differential Diagnosis Herpes, aphthous ulcers. Data reviewed: vital signs, nurses rt notes, lab test result(s). I considered the following discharge prescriptions or medication management in the emergency department Medications were administered in the Emergency Department. See MAR. Counseling: I had a detailed discussion with the patient and/or guardian regarding the historical points, exam findings, and any diagnostic results supporting the discharge/admit diagnosis, lab results, the need for outpatient follow up, to return to the emergency department if symptoms worsen or persist or if there are any questions or concerns that arise at home. 07/12 10:11 Order name: CBC with Diff; Complete Time: 11:30 rt 07/12 10:11 Order name: CMP; Complete Time: 11:30 rt Administered Medications: 11:28 Drug: [place]alt PO 10 mg-325 mg 1 tabs PO once Route: PO; iw Disposition Summary: 07/12/23 11:40 Discharge Ordered Notes: Location: Home rt Problem: an ongoing problem rt Symptoms: are unchanged rt Condition: Stable rt Diagnosis - Herpesviral gingivostomatitis and pharyngotonsillitis rt Followup: rt - With: Private Physician - When: 2 - 3 days - Reason: Discharge Instructions: - Discharge Summary Sheet rt - Stomatitis rt Forms: - Medication Reconciliation Form rt - Thank You Letter rt - Antibiotic Education rt - Prescription Opioid Use rt - Patient Portal Instructions rt - Leadership Thank You Letter rt Prescriptions: - acetaminophen-codeine 300-30 mg Oral tablet - take 1 tablet ORAL route every 6 hours as needed for pain; 15 tablet; Refills: rt 0, Product Selection Permitted - Valtrex 500 mg Oral tablet - take 1 tablet ORAL route every 12 hours for 7 days; 14 tablet; Refills: 0, rt Product Selection Permitted Signatures: Dispatcher [employer] Nina Gale RN RN iw Prokisch, Amanda, RN RN ap3 Conner Baez MD MD rt
[2023-07-12 12:21] VITALS: BP 157/75; TEMP 97; O2SAT 98
== END ==
LOC: ER 09:35
DX: B00.2 Herpesviral gingivostomatitis and pharyngotonsillitis (principal); Z72.0 Tobacco use; Z88.0 Allergy status to penicillin
CPT/HCPCS: 36415; 80053; 85025; 99284

== ENCOUNTER 2024-09-16 17:58 | Emergency (ER) | payer OTHER ==
[2024-09-16 20:44] LABS: Absolute Basophils 0.1 K/uL (0-0.5); Absolute Eosinophils 0.8 K/uL (0-0.5); Absolute Monocytes 0.4 K/uL (0.1-1.3); Absolute Neutrophil 4.3 K/uL (1.8-8.0); Basophils % 0.8 % (0-1.3); Eosinophils % 10.3 % (0-4.4); Hematocrit 38.5 % (36.0-45.0); Hemoglobin 13.4 g/dL (12.0-15.0); Lymphocytes % 26.9 % (15.3-44.8); MCHC 34.8 g/dL (32.0-36.0); MCV 97.6 fL (80-100); MPV 7.4 fL (7.6-11.3); Monocytes % 5.6 % (3.3-12.3); Neutrophils % 56.4 % (41.7-73.7); Platelets 225 thou/uL (152-406); RBC Red Blood Cell Count 3.95 M/uL (3.86-4.86); Red Cell Distribution Width 13.3 % (12.1-15.2)
[2024-09-16 20:57] LABS: Albumin 3.5 g/dL (3.4-5.0); Anion Gap 5.9 mEq/L (5.0-15.0); Bilirubin Total 0.4 mg/dL (0.2-1.0); Globulin 3.6 g/dL (2.3-3.5); Potassium 3.9 mEq/L (3.5-5.1); Protein, Total 7.1 g/dL (6.4-8.2)
[2024-09-16] MEDS ORDERED: MORPHINE 2 MG/ML SYR ONE (22:17)
[2024-09-16 22:21] LABS: Specific Gravity > 1.030 (1.005-1.030); Urine Bilirubin NEGATIVE (Negative); Urine Blood Negative (Negative); Urine Clarity Clear (Clear); Urine Color Light-Yellow (Yellow); Urine Glucose NEGATIVE (Negative); Urine Ketones 1+ (Negative); Urine Microscopic Reflex YN NO UMIC; Urine Nitrite NEGATIVE (Negative); Urine Protein NEGATIVE (Negative); Urine Urobilinogen Normal (Normal)
--- NOTE | 2024-09-16 22:23 | RAD REPORT ---
EXAMINATION: CT Abdomen Pelvis W Contrast CLINICAL INDICATION: Female, 79 years old. ABD PAIN TECHNIQUE: CT abdomen and pelvis was performed, after the administration of IV contrast, [facility]. Axial, sagittal and coronal reconstructions were obtained. One or more of the following dose reduction techniques were used: Automated exposure control, adjustment of the mA and k V according to patient size, and iterative reconstruction. Unless otherwise specified, incidental findings do not require dedicated imaging follow-up. COMPARISON: 02/22/2022 FINDINGS: LOWER CHEST: The visualized lung bases are clear. LIVER: Normal in size and contour. No focal lesion. BILIARY SYSTEM: No suspicious abnormalities. SPLEEN: Normal size. No focal lesion. PANCREAS: No mass, ductal dilation, or queenie-pancreatic fluid. ADRENALS: Normal; no mass. KIDNEYS: Normal size and contour. No hydronephrosis. URINARY BLADDER: Unremarkable. GASTROINTESTINAL TRACT: No evidence of free air, significant intra-abdominal free fluid, bowel obstru ction or abscess. APPENDIX: Normal appendix. LYMPH NODES: No lymphadenopathy. MUSCULOSKELETAL: No acute or suspicious osseous abnormality. Posterior approach L3-L4 transpedicular fusion. Lateral listhesis with compression deformities at L1 and L2. Inferior endplate compression deformity at T12, progressive since the prior exam. ADDITIONAL FINDINGS: Vaginal diaphragm in place.. IMPRESSION: Progressive inferior endplate compression deformity at T12, indeterminate age. No other acute or concerning abnormalities seen in the abdomen or pelvis. Stable incidental findings as above.
--- NOTE | 2024-09-16 22:25 | EDPHYS ---
Physician Documentation [facility] Name: Emeli Benoit Age: 79 yrs Sex: Female : 1945 Arrival Date: 09/16/2024 Time: 17:58 Bed 23 Private MD: ED Physician Conner Baez HPI: 09/16 18:29 This 79 yrs old Female presents to ER via Wheelchair with complaints of Flank kb Pain, Low Back Pain. 18:29 Pt is a 79 year old female who presents for LLQ pain that radiates to left low back. kb States the pain started 3-4 months ago and has gotten progressively worse. Couldn't handle the pain today. Was seen by PCP in July, xrays were done and normal. Denies fever, n/d/v, urinary symptoms. Historical: - Allergies: 18:27 PENICILLINS; bp - Home Meds: 18:27 Lyrica Oral [Active]; meloxicam Oral [Active]; bp - PMHx: 18:27 Arthritis; bp - Immunization history:: Adult Immunizations up to date. - Infectious Disease History:: Denies. - Social history:: Smoking status: Patient denies any tobacco usage or history of. ROS: 22:16 Constitutional: As per HPI kb Exam: 22:16 Constitutional: This is a well developed, well nourished patient who is awake, alert, kb and in no acute distress. Head/Face: Normocephalic, atraumatic. ENT: Moist Mucous membranes Cardiovascular: Regular rate Respiratory: Respirations even and unlabored. No increased work of breathing. Talking in full sentences Abdomen/GI: Soft, non-tender. No distention Skin: Warm, dry with normal turgor. Normal color. MS/ Extremity: Pulses equal, no cyanosis. Neurovascular intact. Full, normal range of motion. Neuro: Awake and alert, GCS 15, oriented to person, place, time, and situation. 22:16 Back: pain, that is mild, of the left low back, CVA tenderness, is absent, Vital Signs: 18:23 BP 152 / 103; Pulse 87; Resp 16; Temp 98; Pulse Ox 96% ; bp 20:53 BP 173 / 80; Pulse 76; Resp 16; Pulse Ox 100% on R/A; jb4 22:15 BP 147 / 81; Pulse 65; Resp 16; Pulse Ox 99% on R/A; jb4 MDM: 18:11 Medical Screening Exam initiated kb 22:16 Differential diagnosis: diverticulitis, kidney stone, muscle strain. Data reviewed: kb vital signs, nurses notes. Historians other than the Patient: Family Member: family member. 22:24 Counseling: I had a detailed discussion with the patient and/or guardian regarding the kb historical points, exam findings, and any diagnostic results supporting the discharge/admit diagnosis, lab results, radiology results, the need for outpatient follow up, a family practitioner, to return to the emergency department if symptoms worsen or persist or if there are any questions or concerns that arise at home. 09/16 18:29 Order name: CBC with Diff; Complete Time: 20:59 kb 09/16 18:29 Order name: CMP; Complete Time: 20:59 kb 09/16 18:29 Order name: Lipase; Complete Time: 20:59 kb 09/16 18:29 Order name: Urinalysis w/ reflexes; Complete Time: 22:22 kb 09/16 18:29 Order name: CT Abd/Pelvis - IV Contrast Only; Complete Time: 22:24 kb 09/16 18:29 Order name: IV Saline Lock; Complete Time: 20:43 kb 09/16 18:29 Order name: Labs collected and sent; Complete Time: 20:43 kb Administered Medications: 22:20 Drug: morphine IVP or IV 2 mg IVP once over 4 mins Route: IVP; Infused Over: 4 mins; jb4 Site: left antecubital; 23:02 Follow up: Response: No adverse reaction; Marked relief of symptoms; Pain is decreased; jb4 RASS: Alert and Calm (0) 23:02 Not Given (Patient Refused): ondansetron 4 mg IVP once; over 2 minutes jb4 Disposition: 09/17 12:11 Co-signature as Attending Physician, Conner Baez MD I reviewed the patient's care rt provided by the Advanced Practice Provider and agree with the diagnosis and treatment plan. Disposition Summary: 09/16/24 22:24 Discharge Ordered Notes: Location: Home Condition: Stable kb Diagnosis - Lower abdominal pain, unspecified kb Followup: kb - With: Emergency Department - When: As needed - Reason: Worsening of condition Followup: kb - With: Private Physician - When: 2 - 3 days - Reason: Recheck today's complaints, Continuance of care, Re-evaluation by your physician Discharge Instructions: - Discharge Summary Sheet kb - Abdominal Pain, Adult, [id number] kb - Muscle Strain, [id number] kb Forms: - Medication Reconciliation Form kb - Antibiotic Education kb - Prescription Opioid Use kb - Patient Portal Instructions kb - Leadership Thank You Letter kb Prescriptions: - Mobic 7.5 mg Oral Tablet - take 1 tablet ORAL route once daily take with food; 20 tablet; Refills: 0, kb Product Selection Permitted Signatures: Dispatcher [employer] EDMS Stephany Quezada, ACCOUNTING SUPPORT SPECIALIST-C Girish Kennedy RN RN jb4 Joel Sosa, RN RN bp Conner Baez MD MD rt Corrections: (The following items were deleted from the chart) 09/16 18:30 18:30 Abdomen Pelvis W Con+CT.RAD.BRZ ordered. EDID EDID
--- NOTE | 2024-09-16 22:25 | ER ---
Nurse's Notes [facility] Name: Emeli Benoit Age: 79 yrs Sex: Female : 1945 Arrival Date: 09/16/2024 Time: 17:58 Bed 23 Private MD: Diagnosis: Lower abdominal pain, unspecified Presentation: 09/16 18:23 Chief complaint: Patient states: LEFT HIP PAIN x4 MONTHS, DX WITH OA BY PHYSICIAN BUT bp BELIEVES PAIN IS MORE SEVERE THAN ARTHRITIS. Coronavirus screen: At this time, the client does not indicate any symptoms associated with coronavirus-19. Ebola Screen: No symptoms or risks identified at this time. Initial Sepsis Screen: Does the patient meet any 2 criteria? No. Patient's initial sepsis screen is negative. Does the patient have a suspected source of infection? No. Patient's initial sepsis screen is negative. Risk Assessment: Do you want to hurt yourself or someone else? Patient reports no desire to harm self or others. Onset of symptoms is unknown. 18:23 Method Of Arrival: Wheelchair bp 18:23 Acuity: ANDRE 4 bp 20:05 Acuity: ANDRE 3 iw Historical: - Allergies: 18:27 PENICILLINS; bp - Home Meds: 18:27 Lyrica Oral [Active]; meloxicam Oral [Active]; bp - PMHx: 18:27 Arthritis; bp - Immunization history:: Adult Immunizations up to date. - Infectious Disease History:: Denies. - Social history:: Smoking status: Patient denies any tobacco usage or history of. Screenin:53 [facility] ED Fall Risk Assessment (Adult) History of falling in the last 3 months, jb4 including since admission No falls in past 3 months (0 pts) Confusion or Disorientation No (0 pts) Intoxicated or Sedated No (0 pts) Impaired Gait No (0 pts) Mobility Assist Device Used No (0 pt) Altered Elimination No (0 pt) Score/Fall Risk Level 0 - 2 = Low Risk Oriented to surroundings, Maintained a safe environment. Abuse screen: Denies threats or abuse. Nutritional screening: No deficits noted. Tuberculosis screening: No symptoms or risk factors identified. Assessment: 20:53 General: Appears in no apparent distress. uncomfortable, Behavior is calm, cooperative, jb4 appropriate for age. Pain: Complains of pain in left low back Pain radiates to left inguinal area and left iliac crest Pain currently is 8 out of 10 on a pain scale. Neuro: Level of Consciousness is awake, alert, obeys commands, Oriented to person, place, time, situation. Cardiovascular: Patient's skin is warm and dry. Respiratory: Airway is patent Respiratory effort is even, unlabored, Respiratory pattern is regular, symmetrical. Derm: Skin is intact, Skin is pink, warm \T\ dry. 20:53 GI: Abdomen is flat, non-distended, Abd is soft and non tender X 4 quads. jb4 Musculoskeletal: Circulation, motion, and sensation intact. Range of motion: intact in all extremities, pt denies tenderness to the left hip and pelvic area. 22:18 Reassessment: Patient appears in no apparent distress at this time. Patient and/or jb4 family updated on plan of care and expected duration. Pain level reassessed. Patient is alert, oriented x 3, equal unlabored respirations, skin warm/dry/pink. Vital Signs: 18:23 BP 152 / 103; Pulse 87; Resp 16; Temp 98; Pulse Ox 96% ; bp 20:53 BP 173 / 80; Pulse 76; Resp 16; Pulse Ox 100% on R/A; jb4 22:15 BP 147 / 81; Pulse 65; Resp 16; Pulse Ox 99% on R/A; jb4 ED Course: 18:03 Patient arrived in ED. gm2 18:11 Stephany Quezada FNP-C is [facility]. kb 18:11 Conner Baez MD is Attending Physician. kb 18:23 Joel Sosa, АНДРЕЙ is Primary Nurse. bp 18:27 Triage completed. bp 18:27 Arm band placed on. bp 19:34 Radiology exam delayed due to lab results not completed at this time. (BUN/Creatinine) nj IV insertion attempt and/or patient not having appropriate IV at this time. 20:43 CBC with Diff Sent. jb4 20:43 CMP Sent. jb4 20:43 Lipase Sent. jb4 20:46 Inserted saline lock: 22 gauge in left antecubital area, using aseptic technique. Blood vk collected. Flushed with 10 mL NS. 20:46 Initial lab(s) drawn, by me, sent to lab. vk 20:53 Patient has correct armband on for positive identification. Bed in low position. Call jb4 light in reach. Side rails up X 1. Provided Education on: plan of care. 20:53 No provider procedures requiring assistance completed. jb4 21:22 CT Abd/Pelvis - IV Contrast Only In Process Unspecified. EDMS 22:50 IV discontinued, intact, bleeding controlled, No redness/swelling at site. Pressure jb4 dressing applied. Administered Medications: 22:20 Drug: morphine IVP or IV 2 mg IVP once over 4 mins Route: IVP; Infused Over: 4 mins; jb4 Site: left antecubital; 23:02 Follow up: Response: No adverse reaction; Marked relief of symptoms; Pain is decreased; jb4 RASS: Alert and Calm (0) 23:02 Not Given (Patient Refused): ondansetron 4 mg IVP once; over 2 minutes jb4 Medication: 20:53 VIS not applicable for this client. jb4 Outcome: 22:24 Discharge ordered by . jose 22:50 Discharged to home via wheelchair, with family, jb4 22:50 Condition: stable 22:50 Discharge instructions given to patient, Instructed on discharge instructions, follow up and referral plans. Demonstrated understanding of instructions, follow-up care, 23:00 Patient left the ED. vk Signatures: Dispatcher [employer] EDMS Stephany Quezada, SPECIFICATION CONSULTANT-C SPECIFICATION CONSULTANT-CkNina Fregoso RN RN iw Bryson, James, RN RN jb4 Jordan, Nathan nj Peltier, Brian, RN RN bp Mitchell, Ginger gm2 Kruse, Vivian vk
[2024-09-16 23:04] VITALS: TEMP 98
[2024-09-16 23:06] VITALS: BP 147/81; O2SAT 99
== END 2024-09-16 23:00 | disposition home or self-care (01) ==
LOC: ER 17:58
DX: R10.32 Left lower quadrant pain (principal)
CPT/HCPCS: 85025; 36415; 81003; 83690; 80053; 74177; Q9967; J2270